=== PATIENT | female | born 1940 | race Caucasian/White ===

== ENCOUNTER 2017-09-27 13:47 | Emergency (ER) | payer MEDICARE, OTHER ==
[~2017-09-27] VITALS: Ht 152.4 cm; Wt 47.0 kg
[~2017-09-27 13:47] MED LIST: ACET650T10 PO; CEPH500C3 PO; CYAN1000P IM; DILA100C PO; GABA300 PO; LASI20TA PO; LORA-392 PO; POTA10CA26 PO; RISP.25 PO; SERT50 PO; SIMV20 PO
--- NOTE | 2017-09-27 15:14 | RADRPT ---
EXAM DATE/TIME: 09/27/2017 15:03 [facility] COMPARISON: No previous studies available for comparison. INDICATIONS : Dizziness, fall. RADIATION DOSE: 47 CTDIvol (mGy) MEDICAL HISTORY : Seizures. SURGICAL HISTORY : None. ENCOUNTER: Initial ACUITY: 2 days PAIN SCALE: 0/10 LOCATION: cranial TECHNIQUE: Multiple contiguous axial images were obtained of the head. Using automated exposure control and adj ustment of the mA and/or kV according to patient size, radiation dose was kept as low as reasonably a chievable to obtain optimal diagnostic quality images. DICOM format image data is available electro nically for review and comparison. FINDINGS: CEREBRUM: The ventricles are normal for age. No evidence of midline shift, mass lesion, hemorrhage or acute in farction. No extra-axial fluid collections are seen. POSTERIOR FOSSA: The cerebellum and brainstem are intact. The 4th ventricle is midline. The cerebellopontine angle i s unremarkable. EXTRACRANIAL: The visualized portion of the orbits is intact. SKULL: The calvaria is intact. No evidence of skull fracture. CONCLUSION: Negative noncontrast CT Dickson Kuhn MD on September 27, 2017 at 15:11 Board Certified Radiologist. This report was verified electronically.
--- NOTE | 2017-09-27 15:28 | RADRPT ---
EXAM DATE/TIME: 09/27/2017 15:03 [facility] COMPARISON: No previous studies available for comparison. INDICATIONS : Fall. RADIATION DOSE: 16.32 CTDIvol (mGy) MEDICAL HISTORY : Seizures. SURGICAL HISTORY : None. ENCOUNTER: Initial ACUITY: 1 day PAIN SCALE: 0/10 LOCATION: Bilateral neck TECHNIQUE: Volumetric scanning of the cervical spine was performed. Multiplanar reconstructions i n the sagittal, coronal and oblique axial planes were performed. Using automated exposure control a nd adjustment of the mA and/or kV according to patient size, radiation dose was kept as low as reason ably achievable to obtain optimal diagnostic quality images. DICOM format image data is available e lectronically for review and comparison. FINDINGS: The sagittal reconstructions demonstrate that the vertebral bodies are intact and there is normal pre vertebral soft tissues. There is a mild grade 1 anterospondylolisthesis of C4 on C5 approximately 5 m m which appears chronic. Degenerative disc changes are present with disc space narrowing and hypertro phic changes. There are degenerative changes involving the atlantoaxial joint with prominent joint ca psule calcification. The dens is intact and there is a normal atlantoaxial relationship. The axial images demonstrate that the vertebral bodies and posterior elements are intact. The soft ti ssues are within normal limits. There is no evidence of acute fracture or malalignment. There is an a bnormal appearance of the proximal esophagus with prominence, para food and air fluid levels noted ju st below the thoracic inlet. CONCLUSION: 1. No acute fracture. 2. Mild grade 1 anterospondylolisthesis of C4 and C5 which appears chronic. 3. Degenerative disc change. 4. Abnormal appearance to the proximal esophagus which may represent a Zenker's diverticulum. This is not an acute abnormality and could be further evaluated with direct imaging and/or outpatient barium swallow.. Board Certified Radiologist. This report was verified electronically.
[2017-09-27 15:59] VITALS: BP 105/52; PULSE 63; RESP 16; TEMP 98.4; O2SAT 95
[2017-09-27 18:00] LABS: AUTOMATED NEUTROPHIL # 1.6 TH/MM3 (1.8-7.7); BASOPHIL % 0.5 % (0.0-2.0); EOSINOPHIL % 0.5 % (0.0-4.0); HEMATOCRIT 39.8 % (35.0-46.0); HEMOGLOBIN 14.1 GM/DL (11.6-15.3); LYMPH % 43.7 % (9.0-44.0); LYMPHOCYTE # 1.5 TH/MM3 (1.0-4.8); MEAN CELL VOLUME 101.1 FL (80.0-100.0); MEAN CORPUSCULAR HEMOGLOBIN 35.8 PG (27.0-34.0); MEAN CORPUSCULAR HGB CONC 35.4 % (32.0-36.0); MEAN PLATELET VOLUME 7.6 FL (7.0-11.0); MONO % 8.6 % (0.0-8.0); MONOCYTE # 0.3 TH/MM3 (0-0.9); NEUT % 46.7 % (16.0-70.0); PLATELET COUNT 131 TH/MM3 (150-450); RED BLOOD COUNT 3.94 MIL/MM3 (4.00-5.30); RED CELL DISTRIBUTION WIDTH 12.7 % (11.6-17.2); WHITE BLOOD COUNT 3.3 TH/MM3 (4.0-11.0)
--- NOTE | 2017-09-27 18:00 | PD ---
HPI Chief Complaint: Fall Time Seen by Provider: 17:58 Travel History International Travel<30 days: No Contact w/Intl Traveler<30days: No PFSH Past Medical History Medical History: Denies Significant Hx Anxiety: Yes Depression: Yes Diminished Hearing: No Seizures: Yes ?: Not Menopausal: Yes Past Surgical History Surgical History: No Previous Surgery Social History Alcohol Use: No Tobacco Use: No Substance Use: No Allergies-Medications (Allergen,Severity, Reaction): Coded Allergies: No Known Allergies (Verified , 01/22/10) Reported Meds & Prescriptions Reported Meds & Active Scripts Active Keflex (Cephalexin Monohydrate) 500 Mg Cap 500 Mg PO QID Reported Ativan (Lorazepam) 0.5 Mg Tab 0.5 Mg PO BIDPRN Zoloft (Sertraline HCl) 50 Mg Tab 75 Mg PO DAILY Tylenol (Acetaminophen) 650 Mg Supp 650 Mg PO HS Zocor (Simvastatin) 20 Mg Tab 20 Mg PO HS Risperdal (Risperidone) 0.25 Mg Tab 0.25 Mg PO BID Micro-K 10 Extencaps (Potassium Chloride) 10 Meq Capcr 10 Meq PO DAILY Dilantin Kapseals (Phenytoin Sodium) 100 Mg Cap 300 Mg PO DAILY Lasix (Furosemide) 20 Mg Tab 20 Mg PO DAILY Neurontin (Gabapentin) 300 Mg Cap 300 Mg PO TID Vitamin B12 (Cyanocobalamin) 1,000 Mcg/Ml Inj 1,000 Mcg IM MONTHLY Data Data Last Documented VS Vital Signs Date Time Temp Pulse Resp B/P (MAP) Pulse Ox O2 Delivery O2 Flow Rate FiO2 09/27/17 18:16 61 18 117/56 (76) 93 Room Air 09/27/17 15:59 98.4 Orders Orders Complete Blood Count With Diff (09/27/17 13:52) Comprehensive Metabolic Panel (09/27/17 13:52) Troponin I (09/27/17 13:52) Electrocardiogram (09/27/17 ) Urinalysis - C+S If Indicated (09/27/17 13:52) Ct Brain W/O Iv Contrast(Rout) (09/27/17 ) Ct Cerv Spine W/O Contrast (09/27/17 ) Labs Laboratory Tests Test 09/27/17 17:44 White Blood Count 3.3 TH/MM3 Red Blood Count 3.94 MIL/MM3 Hemoglobin 14.1 GM/DL Hematocrit 39.8 % Mean Corpuscular Volume 101.1 FL Mean Corpuscular Hemoglobin 35.8 PG Mean Corpuscular Hemoglobin Concent 35.4 % Red Cell Distribution Width 12.7 % Platelet Count 131 TH/MM3 Mean Platelet Volume 7.6 FL Neutrophils (%) (Auto) 46.7 % Lymphocytes (%) (Auto) 43.7 % Monocytes (%) (Auto) 8.6 % Eosinophils (%) (Auto) 0.5 % Basophils (%) (Auto) 0.5 % Neutrophils # (Auto) 1.6 TH/MM3 Lymphocytes # (Auto) 1.5 TH/MM3 Monocytes # (Auto) 0.3 TH/MM3 Eosinophils # (Auto) 0.0 TH/MM3 Basophils # (Auto) 0.0 TH/MM3 CBC Comment DIFF FINAL Differential Comment Blood Urea Nitrogen 7 MG/DL Creatinine 0.65 MG/DL Random Glucose 144 MG/DL Total Protein 7.4 GM/DL Albumin 3.8 GM/DL Calcium Level 8.3 MG/DL Alkaline Phosphatase 117 U/L Aspartate Amino Transf (AST/SGOT) 25 U/L Alanine Aminotransferase (ALT/SGPT) 27 U/L Total Bilirubin 0.3 MG/DL Sodium Level 132 MEQ/L Potassium Level 3.9 MEQ/L Chloride Level 95 MEQ/L Carbon Dioxide Level 29.3 MEQ/L Anion Gap 8 MEQ/L Estimat Glomerular Filtration Rate 88 ML/MIN Troponin I LESS THAN 0.02 NG/ML Linda Hdez MD Sep 27, 2017 18:00
--- NOTE | 2017-09-27 18:07 | PD ---
HPI Chief Complaint: Fall Time Seen by Provider: 17:58 Travel History International Travel<30 days: No Contact w/Intl Traveler<30days: No History of Present Illness HPI 76-year-old female with history of dementia from [facility] presents to emergency department with questionable unwitnessed fall 2 days prior to arrival. Patient was sent for medical clearance. Patient has no complaints of pain or headache at this time. Patient has no known drug allergies. CT scan of the head and neck was ordered by Dr. Hdez. [facility] Past Medical History Medical History: Denies Significant Hx Anxiety: Yes Depression: Yes Diminished Hearing: No Seizures: Yes ?: Not Menopausal: Yes Past Surgical History Surgical History: No Previous Surgery Social History Alcohol Use: No Tobacco Use: No Substance Use: No Allergies-Medications (Allergen,Severity, Reaction): Coded Allergies: No Known Allergies (Verified , 01/22/10) Reported Meds & Prescriptions Reported Meds & Active Scripts Active Keflex (Cephalexin Monohydrate) 500 Mg Cap 500 Mg PO QID Reported Ativan (Lorazepam) 0.5 Mg Tab 0.5 Mg PO BIDPRN Zoloft (Sertraline HCl) 50 Mg Tab 75 Mg PO DAILY Tylenol (Acetaminophen) 650 Mg Supp 650 Mg PO HS Zocor (Simvastatin) 20 Mg Tab 20 Mg PO HS Risperdal (Risperidone) 0.25 Mg Tab 0.25 Mg PO BID Micro-K 10 Extencaps (Potassium Chloride) 10 Meq Capcr 10 Meq PO DAILY Dilantin Kapseals (Phenytoin Sodium) 100 Mg Cap 300 Mg PO DAILY Lasix (Furosemide) 20 Mg Tab 20 Mg PO DAILY Neurontin (Gabapentin) 300 Mg Cap 300 Mg PO TID Vitamin B12 (Cyanocobalamin) 1,000 Mcg/Ml Inj 1,000 Mcg IM MONTHLY Review of Systems ROS Limitations: Poor Historian Except as stated in HPI: all other systems reviewed are Neg General / Constitutional: No: Fever Eyes: No: Visual changes HENT: No: Headaches Cardiovascular: No: Chest Pain or Discomfort Respiratory: No: Shortness of Breath Gastrointestinal: No: Abdominal Pain Genitourinary: No: Dysuria Musculoskeletal: No: Pain Skin: No Rash Neurologic: No: Weakness Psychiatric: No: Depression Endocrine: No: Polydipsia Hematologic/Lymphatic: No: Easy Bruising Physical Exam Narrative GENERAL: Patient appears in no acute distress. She is pleasant. She does not remember why she is here. SKIN: Warm and dry. Normal color. Normal turgor. No signs of trauma. HEAD: Atraumatic. Normocephalic. Nontender with palpation. EYES: Pupils equal and round. No scleral icterus. No injection or drainage. ENT: No nasal bleeding or discharge. Mucous membranes pink and moist. Pharynx is clear. Airway is patent. NECK: Trachea midline. No tenderness with palpation. Range of motion appears supple and nontender. CARDIOVASCULAR: Regular rate and rhythm. RESPIRATORY: No accessory muscle use. Clear to auscultation. Breath sounds equal bilaterally. GASTROINTESTINAL: Abdomen soft, non-tender, nondistended. Hepatic and splenic margins not palpable. MUSCULOSKELETAL: Extremities without clubbing, cyanosis, or edema. No obvious deformities. NEUROLOGICAL: Awake and alert. No obvious cranial nerve deficits. Motor grossly within normal limits. Five out of 5 muscle strength in the arms and legs. Normal speech. PSYCHIATRIC: Appropriate mood and affect; insight and judgment normal. Data Data Last Documented VS Vital Signs Date Time Temp Pulse Resp B/P (MAP) Pulse Ox O2 Delivery O2 Flow Rate FiO2 09/27/17 18:16 61 18 117/56 (76) 93 Room Air 09/27/17 15:59 98.4 Orders Orders Complete Blood Count With Diff (09/27/17 13:52) Comprehensive Metabolic Panel (09/27/17 13:52) Troponin I (09/27/17 13:52) Electrocardiogram (09/27/17 ) Urinalysis - C+S If Indicated (09/27/17 13:52) Ct Brain W/O Iv Contrast(Rout) (09/27/17 ) Ct Cerv Spine W/O Contrast (09/27/17 ) Labs Laboratory Tests Test 09/27/17 17:44 White Blood Count 3.3 TH/MM3 Red Blood Count 3.94 MIL/MM3 Hemoglobin 14.1 GM/DL Hematocrit 39.8 % Mean Corpuscular Volume 101.1 FL Mean Corpuscular Hemoglobin 35.8 PG Mean Corpuscular Hemoglobin Concent 35.4 % Red Cell Distribution Width 12.7 % Platelet Count 131 TH/MM3 Mean Platelet Volume 7.6 FL Neutrophils (%) (Auto) 46.7 % Lymphocytes (%) (Auto) 43.7 % Monocytes (%) (Auto) 8.6 % Eosinophils (%) (Auto) 0.5 % Basophils (%) (Auto) 0.5 % Neutrophils # (Auto) 1.6 TH/MM3 Lymphocytes # (Auto) 1.5 TH/MM3 Monocytes # (Auto) 0.3 TH/MM3 Eosinophils # (Auto) 0.0 TH/MM3 Basophils # (Auto) 0.0 TH/MM3 CBC Comment DIFF FINAL Differential Comment Blood Urea Nitrogen 7 MG/DL Creatinine 0.65 MG/DL Random Glucose 144 MG/DL Total Protein 7.4 GM/DL Albumin 3.8 GM/DL Calcium Level 8.3 MG/DL Alkaline Phosphatase 117 U/L Aspartate Amino Transf (AST/SGOT) 25 U/L Alanine Aminotransferase (ALT/SGPT) 27 U/L Total Bilirubin 0.3 MG/DL Sodium Level 132 MEQ/L Potassium Level 3.9 MEQ/L Chloride Level 95 MEQ/L Carbon Dioxide Level 29.3 MEQ/L Anion Gap 8 MEQ/L Estimat Glomerular Filtration Rate 88 ML/MIN Troponin I LESS THAN 0.02 NG/ML MDM Medical Decision Making Medical Screen Exam Complete: Yes Emergency Medical Condition: Yes Medical Record Reviewed: Yes Differential Diagnosis Dementia. Question unwitnessed fall. Possible intracranial bleed. Narrative Course Patient appears medically stable at time of exam. CT of the head and neck are normal. Labs are also within normal limits. Patient is medically cleared for return to nursing facility. Patient be followed up by her primary care physician. Diagnosis Primary Impression: Encounter for general adult medical examination without abnormal findings Referrals: Primary Care Physician Patient Instructions: Fall Prevention for Older Adults (DC), General Instructions Additional Instructions: Patient appears medically stable at time of exam. CT of the head and neck are normal. Labs are also within normal limits. Patient is medically cleared for return to nursing facility. Patient be followed up by her primary care physician. Med/Other Pt SpecificInfo: No Meds Exist/No RX given Disposition: 03 DISCHARGE TO SNF Condition: Stable Jeff Mcdonnell Sep 27, 2017 18:07
[2017-09-27 18:12] LABS: ALBUMIN 3.8 GM/DL (3.4-5.0); ALT (GPT) 27 U/L (10-53); AST (GOT) 25 U/L (15-37); BICARBONATE 29.3 MEQ/L (21.0-32.0); BLOOD UREA NITROGEN 7 MG/DL (7-18); CALCIUM 8.3 MG/DL (8.5-10.1); CHLORIDE 95 MEQ/L (98-107); CREATININE 0.65 MG/DL (0.50-1.00); GLOMERULAR FILTRATION RATE 88 ML/MIN (>89); GLUCOSE,RANDOM 144 MG/DL (74-106); SODIUM (NA) 132 MEQ/L (136-145)
[2017-09-27 18:16] VITALS: BP 117/56; PULSE 61; RESP 18; O2SAT 93
[2017-09-27 18:16] LABS: ALKALINE PHOSPHATASE 117 U/L (45-117); TOTAL BILIRUBIN ADULT 0.3 MG/DL (0.2-1.0); TOTAL PROTEIN 7.4 GM/DL (6.4-8.2); TROPONIN I LESS THAN 0.02 NG/ML (0.02-0.05)
--- NOTE | 2017-09-27 18:31 | PD ---
Physical Exam Narrative I, Dr. Hdez, have reviewed the advance practice practitioner's documentation and am in agreement, met with the patient face to face, made the diagnosis, and the medical decision making was done by me. *My assessment and Findings: Patient is a 76 year old female who comes in from the OR after a fall. She doesn't remember what happened. Exam shows no acute abnormalities. Data Data Last Documented VS Orders Orders Complete Blood Count With Diff (09/27/17 13:52) Comprehensive Metabolic Panel (09/27/17 13:52) Troponin I (09/27/17 13:52) Electrocardiogram (09/27/17 ) Ct Brain W/O Iv Contrast(Rout) (09/27/17 ) Ct Cerv Spine W/O Contrast (09/27/17 ) Ed Discharge Order (09/27/17 19:17) Labs Laboratory Tests Test 09/27/17 17:44 White Blood Count 3.3 TH/MM3 Red Blood Count 3.94 MIL/MM3 Hemoglobin 14.1 GM/DL Hematocrit 39.8 % Mean Corpuscular Volume 101.1 FL Mean Corpuscular Hemoglobin 35.8 PG Mean Corpuscular Hemoglobin Concent 35.4 % Red Cell Distribution Width 12.7 % Platelet Count 131 TH/MM3 Mean Platelet Volume 7.6 FL Neutrophils (%) (Auto) 46.7 % Lymphocytes (%) (Auto) 43.7 % Monocytes (%) (Auto) 8.6 % Eosinophils (%) (Auto) 0.5 % Basophils (%) (Auto) 0.5 % Neutrophils # (Auto) 1.6 TH/MM3 Lymphocytes # (Auto) 1.5 TH/MM3 Monocytes # (Auto) 0.3 TH/MM3 Eosinophils # (Auto) 0.0 TH/MM3 Basophils # (Auto) 0.0 TH/MM3 CBC Comment DIFF FINAL Differential Comment Blood Urea Nitrogen 7 MG/DL Creatinine 0.65 MG/DL Random Glucose 144 MG/DL Total Protein 7.4 GM/DL Albumin 3.8 GM/DL Calcium Level 8.3 MG/DL Alkaline Phosphatase 117 U/L Aspartate Amino Transf (AST/SGOT) 25 U/L Alanine Aminotransferase (ALT/SGPT) 27 U/L Total Bilirubin 0.3 MG/DL Sodium Level 132 MEQ/L Potassium Level 3.9 MEQ/L Chloride Level 95 MEQ/L Carbon Dioxide Level 29.3 MEQ/L Anion Gap 8 MEQ/L Estimat Glomerular Filtration Rate 88 ML/MIN Troponin I LESS THAN 0.02 NG/ML MDM Supervised Visit with [facility]: Yes Narrative Course CT head and C-spine performed. Last [address] 09/27/17 0000 Signed Impressions: Service Date/Time: Wednesday, September 27, 2017 15:03 - CONCLUSION: Negative noncontrast CT Dickson Kuhn MD Cervical Spine CT 09/27/17 0000 Signed Impressions: Service Date/Time: Wednesday, September 27, 2017 15:03 - CONCLUSION: 1. No acute fracture. 2. Mild grade 1 anterospondylolisthesis of C4 and C5 which appears chronic. 3. Degenerative disc change. 4. Abnormal appearance to the proximal esophagus which may represent a Zenker's diverticulum. This is not an acute abnormality and could be further evaluated with direct imaging and/or outpatient barium swallow.. Board Certified Radiologist. This report was verified electronically. She will discharged back to her NH. Diagnosis Primary Impression: Encounter for general adult medical examination without abnormal findings Referrals: Primary Care Physician Patient Instructions: General Instructions Disposition: 03 DISCHARGE TO SNF Condition: Stable Linda Hdez MD Sep 27, 2017 18:31
[2017-09-27 19:00] VITALS: BP_SYST 110; BP_SYST 124; BP_DIAS 51; BP_DIAS 75; PULSE 60; PULSE 92; RESP 20; O2SAT 94; O2SAT 95
--- NOTE | 2017-09-28 16:24 | EKG ---
Date Performed: 09/27/2017 Time Performed: 18:20:05 PTAGE: 76 years EKG: Sinus rhythm WITH FIRST DEGREE AV BLOCK LOW QRS VOLTAGE IN PRECORDIAL LEADS INFERIOR MYOCARDIAL INFARCTION ABNORM AL ECG Compared to PREVIOUS TRACING , evidence for inferior infarction is now present. PREVIOUS TRACIN09/2005 11.54 DOCTOR: Erick Valerio Interpretating Date/Time 09/28/2017 16:23:15
== END 2017-09-27 22:16 ==
LOC: NEPC 13:47 → NEDAMB 22:16
DX: Z04.3 Encounter for examination and observation following other accident (principal); M50.30 Other cervical disc degeneration, unspecified cervical region; I44.0 Atrioventricular block, first degree; I25.2 Old myocardial infarction; R94.31 Abnormal electrocardiogram [ECG] [EKG]; F03.90 Unspecified dementia, unspecified severity, without behavioral disturbance, psychotic disturbance, mood disturbance, and anxiety; F41.9 Anxiety disorder, unspecified; F32.9 Major depressive disorder, single episode, unspecified; R56.9 Unspecified convulsions
CPT/HCPCS: 70450; 72125; 80053; 84484; 85025; 93005

== ENCOUNTER 2017-09-29 18:30 | Inpatient (IN) | payer MEDICARE, OTHER ==
[~2017-09-29] VITALS: Ht 162.6 cm; Wt 56.4 kg
[2017-09-29 18:47] VITALS: BP 136/61; PULSE 75; RESP 23; TEMP 97.7; O2SAT 95
[2017-09-29 19:23] VITALS: BP 114/56; PULSE 60; RESP 15; O2SAT 95
[2017-09-29] MEDS ORDERED: SODIUM CHLORID 0.9% 500 ML INJ 500 ML IV ONE (19:30)
--- NOTE | 2017-09-29 19:35 | PD ---
HPI Chief Complaint: Medical Clearance Time Seen by Provider: 19:23 Travel History International Travel<30 days: No Contact w/Intl Traveler<30days: No Traveled to known affect area: No History of Present Illness HPI 68-year-old female with a history of seizure disorder presents to the emergency department via [facility] after a fall that occurred at her assisted-living facility today. Patient states that she stood up rather quickly resulting in lightheadedness, falling and hitting her head. Patient denies loss of consciousness, weakness, nausea, vomiting or diarrhea. States her last seizure with many years ago as she takes Dilantin regularly. Patient states she sees a neurologist once a month. Patient has unable to tell me who her neurologist as however. PFSH Past Medical History Anxiety: Yes Depression: Yes High Cholesterol: Yes Dementia: Yes Diminished Hearing: No Seizures: Yes Tetanus Vaccination: Unknown Menopausal: Yes Past Surgical History Surgical History: Unable to Obtain Social History Alcohol Use: No Tobacco Use: No Substance Use: No Allergies-Medications (Allergen,Severity, Reaction): Coded Allergies: No Known Allergies (Verified Allergy, Unknown, 09/29/17) Reported Meds & Prescriptions Reported Meds & Active Scripts Active Keflex (Cephalexin Monohydrate) 500 Mg Cap 500 Mg PO QID Reported B-12 Tr (Cyanocobalamin) 1,000 Mcg Tab 1,000 Mcg PO DAILY Travatan Z Opth Drops (Travoprost) 0.004 % Soln 1 Drop RIGHT EYE HS [place] 24 HR (Desvenlafaxine Succinate) 50 Mg Tab 50 Mg PO DAILY Potassium Chloride ER (Potassium Chloride) 10 Meq Tab 10 Meq PO DAILY Namzaric (Memantine-Donepezil) 28-10 Mg Cap 1 Cap PO HS Allergy Relief (Fexofenadine HCl) 60 Mg Tablet DAILY Milk of Magnesia Liq (Magnesium Hydroxide) 400 Mg/5 Ml Susp 30 Ml PO DAILY PRN Klonopin (Clonazepam) 0.5 Mg Tab 0.5 Mg PO TID Guaifenesin Liq (Guaifenesin) 100 mg/5 ML Soln 100 Mg PO Q4H PRN Gabapentin 300 Mg Cap 300 Mg PO TID Furosemide 40 Mg Tab 40 Mg PO DAILY Fleet Enema Extra (Sod Phos,M-B/Na Phos,Di-Ba) 19 Gram-7 Gram/197 Ml Enema 1 RECTAL DAILY Dilantin-125 Liq (Phenytoin) 125 Mg/5 Ml Susp 250 Mg PO DAILY Depakote DR (Divalproex Sodium) 125 Mg Tabdr 125 Mg PO BID Biscolax Supp (Bisacodyl) 10 Mg Supp 10 Mg RECTAL DAILY PRN Atorvastatin (Atorvastatin Calcium) 10 Mg Tab 10 Mg PO HS Aspirin EC (Aspirin) 81 Mg Tabdr 81 Mg PO DAILY Aripiprazole 30 Mg Tab 30 Mg PO DAILY Acetaminophen 325 Mg Capsule 650 PO Q4HR Ativan (Lorazepam) 0.5 Mg Tab 0.5 Mg PO BIDPRN Zoloft (Sertraline HCl) 50 Mg Tab 75 Mg PO DAILY Acetaminophen Er (Acetaminophen) 650 Mg Supp 650 Mg PO HS Zocor (Simvastatin) 20 Mg Tab 20 Mg PO HS Risperdal (Risperidone) 0.25 Mg Tab 0.25 Mg PO BID Micro-K 10 Extencaps (Potassium Chloride) 10 Meq Capcr 10 Meq PO DAILY Dilantin Kapseals (Phenytoin Sodium) 100 Mg Cap 300 Mg PO DAILY Lasix (Furosemide) 20 Mg Tab 20 Mg PO DAILY Neurontin (Gabapentin) 300 Mg Cap 300 Mg PO TID Vitamin B12 (Cyanocobalamin) 1,000 Mcg/Ml Inj 1,000 Mcg IM MONTHLY Review of Systems Except as stated in HPI: all other systems reviewed are Neg Physical Exam Narrative GENERAL: Well-developed well-nourished in no apparent distress SKIN: Focused skin assessment warm/dry. Left forehead light abrasion without hematoma HEAD: Normocephalic. EYES: Pupils equal and round. No scleral icterus. No injection or drainage. EOMI ENT: No nasal bleeding or discharge. Mucous membranes pink and moist. NECK: Supple, nontender. No meningeal signs. Trachea midline. No JVD or lymphadenopathy. CARDIOVASCULAR: Regular rate and rhythm. No murmur appreciated. RESPIRATORY: No accessory muscle use. Clear to auscultation. Breath sounds equal bilaterally. GASTROINTESTINAL: Abdomen soft, non-tender, nondistended. Hepatic and splenic margins not palpable. MUSCULOSKELETAL: No obvious deformities. No clubbing. No cyanosis. No edema. BACK: No CVA tenderness. No rash. No point tenderness on palpation of the spine. NEUROLOGICAL: Awake and alert. No obvious cranial nerve deficits. Motor grossly within normal limits. Normal speech. PSYCHIATRIC: Appropriate mood and affect; insight and judgment normal. Data Data Last Documented VS Vital Signs Date Time Temp Pulse Resp B/P (MAP) Pulse Ox O2 Delivery O2 Flow Rate FiO2 09/29/17 21:33 71 16 114/56 (75) 09/29/17 19:23 95 Room Air 09/29/17 18:[address] Brain W/O Iv Contrast(Rout) (09/29/17 ) Ct Cerv Spine W/O Contrast (09/29/17 ) Ct Facial Bones W/O Iv Cont (09/29/17 ) Sodium Chlorid 0.9% 500 Ml Inj (Ns 500 M (09/29/17 19:30) Phenytoin (Dilantin) (09/29/17 19:30) Complete Blood Count With Diff (09/29/17 19:30) Comprehensive Metabolic Panel (09/29/17 19:30) Magnesium (Mg) (09/29/17 19:30) Orthostatic Vital Signs (09/29/17 19:30) Electrocardiogram (09/29/17 ) Hip, Uni(Ap&Lat) W Ap Pelvis (09/29/17 ) Admit Order (Ed Use Only) (09/29/17 22:54) Place In Observation (09/29/17 ) Vital Signs (Adult) Q4H (09/29/17 22:54) Neuro Checks Q4H (09/29/17 22:54) Activity Oob With Assistance (09/29/17 22:54) Cafeteria Operator / Telemetry .CONTINUOUS (09/29/17 22:54) Diet Heart Healthy (09/30/17 Breakfast) Sodium Chloride 0.9% Flush (Ns Flush) (09/29/17 23:00) Sodium Chloride 0.9% Flush (Ns Flush) (09/30/17 09:00) Comprehensive Metabolic Panel (09/30/17 06:00) Complete Blood Count With Diff (09/30/17 06:00) Pt Request For Service (09/29/17 22:54) Case Management Consult (09/29/17 22:54) Naloxone Inj (Narcan Inj) (09/29/17 23:00) Labs Laboratory Tests Test 09/29/17 19:50 White Blood Count 3.7 TH/MM3 Red Blood Count 3.95 MIL/MM3 Hemoglobin 13.9 GM/DL Hematocrit 39.8 % Mean Corpuscular Volume 100.9 FL Mean Corpuscular Hemoglobin 35.3 PG Mean Corpuscular Hemoglobin Concent 35.0 % Red Cell Distribution Width 12.9 % Platelet Count 132 TH/MM3 Mean Platelet Volume 7.9 FL Neutrophils (%) (Auto) 29.6 % Lymphocytes (%) (Auto) 53.3 % Monocytes (%) (Auto) 13.5 % Eosinophils (%) (Auto) 3.0 % Basophils (%) (Auto) 0.6 % Neutrophils # (Auto) 1.1 TH/MM3 Lymphocytes # (Auto) 2.0 TH/MM3 Monocytes # (Auto) 0.5 TH/MM3 Eosinophils # (Auto) 0.1 TH/MM3 Basophils # (Auto) 0.0 TH/MM3 CBC Comment DIFF FINAL Differential Comment Blood Urea Nitrogen 4 MG/DL Creatinine 0.55 MG/DL Random Glucose 122 MG/DL Total Protein 7.1 GM/DL Albumin 3.7 GM/DL Calcium Level 8.5 MG/DL Magnesium Level 2.1 MG/DL Alkaline Phosphatase 111 U/L Aspartate Amino Transf (AST/SGOT) 26 U/L Alanine Aminotransferase (ALT/SGPT) 26 U/L Total Bilirubin 0.3 MG/DL Sodium Level 132 MEQ/L Potassium Level 4.0 MEQ/L Chloride Level 95 MEQ/L Carbon Dioxide Level 30.3 MEQ/L Anion Gap 7 MEQ/L Estimat Glomerular Filtration Rate 107 ML/MIN Phenytoin (Dilantin) Level 35.6 MCG/ML MDM Medical Decision Making Medical Screen Exam Complete: Yes Emergency Medical Condition: Yes Differential Diagnosis Head contusion, syncope, vasovagal, orthostatic hypotension, dehydration Narrative Course 68-year-old female with a history of seizure disorder presents to the emergency department via [facility] after a fall that occurred at her assisted-living facility today. Patient states that she stood up rather quickly resulting in lightheadedness, falling and hitting her head. Patient also hit her right hip on the floor resulting in pain. Patient denies numbness or tingling. Denies lower extremity weakness. Denies loss of bowel or bladder function. Patient denies loss of consciousness, weakness, nausea, vomiting or diarrhea. States her last seizure with many years ago as she takes Dilantin regularly. Patient states she sees a neurologist once a month. Patient has unable to tell me who her neurologist however. Says her 'memory is bad' because of the amount of seizure she has had in her life. Vital signs stable. Last Impressions Maxillofacial CT 09/29/17 0000 Signed Impressions: Service Date/Time: Friday, September 29, 2017 20:06 - CONCLUSION: No acute disease. Jose David Crews Jr., MD Hip and Pelvis X-Ray 09/29/17 0000 Signed Impressions: Service Date/Time: Friday, September 29, 2017 20:00 - CONCLUSION: No acute disease. Jose David Crews Jr., MD Head CT 09/29/17 0000 Signed Impressions: Service Date/Time: Friday, September 29, 2017 20:06 - CONCLUSION: Normal examination. Jose David Crews Jr., MD Cervical Spine CT 09/29/17 0000 Signed Impressions: Service Date/Time: Friday, September 29, 2017 20:06 - CONCLUSION: 1. No acute abnormality. 2. Multilevel degenerative changes. 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 Jose David Crews Jr., MD Laboratory Tests Test 09/29/17 19:50 White Blood Count 3.7 TH/MM3 Red Blood Count 3.95 MIL/MM3 Hemoglobin 13.9 GM/DL Hematocrit 39.8 % Mean Corpuscular Volume 100.9 FL Mean Corpuscular Hemoglobin 35.3 PG Mean Corpuscular Hemoglobin Concent 35.0 % Red Cell Distribution Width 12.9 % Platelet Count 132 TH/MM3 Mean Platelet Volume 7.9 FL Neutrophils (%) (Auto) 29.6 % Lymphocytes (%) (Auto) 53.3 % Monocytes (%) (Auto) 13.5 % Eosinophils (%) (Auto) 3.0 % Basophils (%) (Auto) 0.6 % Neutrophils # (Auto) 1.1 TH/MM3 Lymphocytes # (Auto) 2.0 TH/MM3 Monocytes # (Auto) 0.5 TH/MM3 Eosinophils # (Auto) 0.1 TH/MM3 Basophils # (Auto) 0.0 TH/MM3 CBC Comment DIFF FINAL Differential Comment Blood Urea Nitrogen 4 MG/DL Creatinine 0.55 MG/DL Random Glucose 122 MG/DL Total Protein 7.1 GM/DL Albumin 3.7 GM/DL Calcium Level 8.5 MG/DL Magnesium Level 2.1 MG/DL Alkaline Phosphatase 111 U/L Aspartate Amino Transf (AST/SGOT) 26 U/L Alanine Aminotransferase (ALT/SGPT) 26 U/L Total Bilirubin 0.3 MG/DL Sodium Level 132 MEQ/L Potassium Level 4.0 MEQ/L Chloride Level 95 MEQ/L Carbon Dioxide Level 30.3 MEQ/L Anion Gap 7 MEQ/L Estimat Glomerular Filtration Rate 107 ML/MIN Phenytoin (Dilantin) Level 35.6 MCG/ML CBC stable. Electrolytes stable. Reviewed previous notes from last admission. She had multiple episodes of falls several days ago. She was evaluated here in the ED and allowed to return home with close follow up. Phenytoin level elevated at 35.6. I am concerned about phenytoin-induced ataxia. To evaluate for her status, I moved the patient to the bedside commode. She was unsuccessful at performing this move without significant assistance. Patient states that she has normally able to ambulate in around her facility without assistance. Because patient's elevated phenytoin and ataxia, will admit for observation as this may be a side effect of her medication. Thank you Dr. Navarro for taking this patient. Diagnosis Primary Impression: Weakness Additional Impressions: Ataxia Elevated phenytoin level Admitting Information Admitting Physician Requests: Observation Condition: Stable Samara Puckett Sep 29, 2017 19:35
[2017-09-29 19:51] VITALS: BP 116/55; RESP 19
--- NOTE | 2017-09-29 20:13 | RADRPT ---
EXAM DATE/TIME: 09/29/2017 20:00 [facility] COMPARISON: No previous studies available for comparison. INDICATIONS : Right hip pain after fall. MEDICAL HISTORY : Seizures. SURGICAL HISTORY : None. ENCOUNTER: Initial ACUITY: 1 day PAIN SCORE: 4/10 LOCATION: Right hip. FINDINGS: Examination of the right hip was performed with AP Pelvis. The primary and secondary trabecular sussy erendira of the femoral neck is intact. The hip joint is of normal width without significant sclerosis or bony hypertrophy. The acetabulum is grossly intact. CONCLUSION: No acute disease. Jose David Crews Jr., MD on September 29, 2017 at 20:10 Board Certified Radiologist. This report was verified electronically.
--- NOTE | 2017-09-29 20:20 | RADRPT ---
EXAM DATE/TIME: 09/29/2017 20:06 [facility] COMPARISON: CT BRAIN W/O CONTRAST, September 27, 2017, 15:03. INDICATIONS : Trauma, fall. Bruising to forehead. RADIATION DOSE: 33.33 CTDIvol (mGy) MEDICAL HISTORY : Dementia. Seizures. SURGICAL HISTORY : None. ENCOUNTER: Initial ACUITY: 1 day PAIN SCALE: 2/10 LOCATION: cranial TECHNIQUE: Multiple contiguous axial images were obtained of the head. Using automated exposure control and adj ustment of the mA and/or kV according to patient size, radiation dose was kept as low as reasonably a chievable to obtain optimal diagnostic quality images. DICOM format image data is available electro nically for review and comparison. FINDINGS: CEREBRUM: The ventricles are normal for age. No evidence of midline shift, mass lesion, hemorrhage or acute in farction. No extra-axial fluid collections are seen. POSTERIOR FOSSA: The cerebellum and brainstem are intact. The 4th ventricle is midline. The cerebellopontine angle i s unremarkable. EXTRACRANIAL: The visualized portion of the orbits is intact. SKULL: The calvaria is intact. No evidence of skull fracture. CONCLUSION: Normal examination. Jose David Crews Jr., MD on September 29, 2017 at 20:16 Board Certified Radiologist. This report was verified electronically.
--- NOTE | 2017-09-29 20:24 | RADRPT ---
EXAM DATE/TIME: 09/29/2017 20:06 [facility] COMPARISON: CT CERVICAL SPINE W/O CONTRAST, September 27, 2017, 15:03. INDICATIONS : Trauma, fall. RADIATION DOSE: 20.34 CTDIvol (mGy) MEDICAL HISTORY : Dementia. Seizures. SURGICAL HISTORY : None. ENCOUNTER: Initial ACUITY: 1 day PAIN SCALE: 0/10 LOCATION: neck TECHNIQUE: Volumetric scanning of the cervical spine was performed. Multiplanar reconstructions in the sagittal, coronal and oblique axial planes were performed. Using automated exposure control and adjustment o f the mA and/or kV according to patient size, radiation dose was kept as low as reasonably achievable to obtain optimal diagnostic quality images. DICOM format image data is available electronically f or review and comparison. FINDINGS: VERTEBRAE: Normal vertebral body height. ALIGNMENT: There is a grade 1 anterolisthesis of C4 on C5. This is unchanged. 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 This is unchanged. C2-C3: The bony spinal canal is normal in size. No evidence of disc bulge or herniation. The neural forami na are bilaterally patent. C3-C4: There is suspected partial fusion of C3-C4. Central canal and neural foramina are patent. C4-C5: There is a grade 1 anterolisthesis. Central canal is patent. Bony uncovertebral hypertrophy generates mild bilateral neural foraminal narrowing. C5-C6: There is considerable disc space narrowing with a broad-based disc osteophyte complex. Mild narrowing the lateral recesses bilaterally but more pronounced on the right. Central canal remains patent. Bon y uncovertebral hypertrophy contributes to significant right neural foraminal narrowing and mild left neural foraminal narrowing. C6-C7: Disc space narrowing without significant bulge or protrusion. Central canal and lateral recess are pa tent. Neural foramina are patent. C7-T1: The bony spinal canal is normal in size. No evidence of disc bulge or herniation. The neural forami na are bilaterally patent. CONCLUSION: 1. No acute abnormality. 2. Multilevel degenerative changes. 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 Jose David Crews Jr., MD on September 29, 2017 at 20:18 Board Certified Radiologist. This report was verified electronically.
[2017-09-29 20:36] LABS: AUTOMATED NEUTROPHIL # 1.1 TH/MM3 (1.8-7.7); BASOPHIL % 0.6 % (0.0-2.0); EOSINOPHIL # 0.1 TH/MM3 (0-0.4); HEMATOCRIT 39.8 % (35.0-46.0); HEMOGLOBIN 13.9 GM/DL (11.6-15.3); LYMPH % 53.3 % (9.0-44.0); MEAN CELL VOLUME 100.9 FL (80.0-100.0); MEAN CORPUSCULAR HEMOGLOBIN 35.3 PG (27.0-34.0); MEAN PLATELET VOLUME 7.9 FL (7.0-11.0); MONO % 13.5 % (0.0-8.0); MONOCYTE # 0.5 TH/MM3 (0-0.9); NEUT % 29.6 % (16.0-70.0); PLATELET COUNT 132 TH/MM3 (150-450); RED BLOOD COUNT 3.95 MIL/MM3 (4.00-5.30); RED CELL DISTRIBUTION WIDTH 12.9 % (11.6-17.2); WHITE BLOOD COUNT 3.7 TH/MM3 (4.0-11.0)
--- NOTE | 2017-09-29 20:40 | RADRPT ---
EXAM DATE/TIME: 09/29/2017 20:06 [facility] COMPARISON: No previous studies available for comparison. INDICATIONS : Trauma, fall. RADIATION DOSE: 56.35 CTDIvol (mGy) MEDICAL HISTORY : Dementia. Seizures. SURGICAL HISTORY : None. ENCOUNTER: Initial ACUITY: 1 day PAIN SCORE: 0/10 LOCATION: facial TECHNIQUE: Volumetric scanning of the facial bones was performed. Using automated exposure control and adjustme nt of the mA and/or kV according to patient size, radiation dose was kept as low as reasonably achiev able to obtain optimal diagnostic quality images. DICOM format image data is available electronicall y for review and comparison. FINDINGS: ORBITS: The orbital and infraorbital osseous structures are intact. The retroconal structures have a normal configuration. No radiopaque foreign bodies are seen. NASAL BONE: The nasal bone and maxillary spine are intact ZYGOMATIC ARCHES: Symmetric without evidence of fracture. SINUSES: The maxillary, ethmoid and frontal sinuses are intact. No air-fluid levels seen. NASAL CAVITY: The nasal septum is intact and midline. The lacrimal ducts are intact. SOFT TISSUES: No radiopaque foreign bodies seen. No soft-tissue swelling is seen. INTRACRANIAL: No intracranial air seen. CRIBIFORM PLATE: Grossly intact. CONCLUSION: No acute disease. Jose David Crews Jr., MD on September 29, 2017 at 20:35 Board Certified Radiologist. This report was verified electronically.
[2017-09-29 20:59] LABS: ALBUMIN 3.7 GM/DL (3.4-5.0); AST (GOT) 26 U/L (15-37); BICARBONATE 30.3 MEQ/L (21.0-32.0); BLOOD UREA NITROGEN 4 MG/DL (7-18); CALCIUM 8.5 MG/DL (8.5-10.1); CHLORIDE 95 MEQ/L (98-107); CREATININE 0.55 MG/DL (0.50-1.00); GLOMERULAR FILTRATION RATE 107 ML/MIN (>89); GLUCOSE,RANDOM 122 MG/DL (74-106); MAGNESIUM 2.1 MG/DL (1.5-2.5); SODIUM (NA) 132 MEQ/L (136-145)
[2017-09-29 21:03] LABS: ALKALINE PHOSPHATASE 111 U/L (45-117); ALT (GPT) 26 U/L (10-53); TOTAL BILIRUBIN ADULT 0.3 MG/DL (0.2-1.0); TOTAL PROTEIN 7.1 GM/DL (6.4-8.2)
[2017-09-29 21:32] VITALS: BP 108/54; RESP 19
[2017-09-29 21:33] VITALS: BP 114/56; RESP 16
[2017-09-29 21:59] LABS: PHENYTOIN (DILANTIN) 35.6 MCG/ML (10.0-20.0)
[2017-09-29] MEDS ORDERED: [UNRECOGNIZED DRUG - CODE] RECTAL (22:23)
[2017-09-29] MEDS ORDERED: FEXO60TA36 (22:23)
[2017-09-29] MEDS ORDERED: ATOR10TA15 PO (22:23)
[2017-09-29] MEDS ORDERED: FURO40TA PO (22:23)
[2017-09-29] MEDS ORDERED: GABA300C5 PO (22:23)
[2017-09-29] MEDS ORDERED: MEMA1CAP2 PO (22:23)
[2017-09-29] MEDS ORDERED: BISC10SU RECTAL (22:23)
[2017-09-29] MEDS ORDERED: GUAI100S7 PO (22:23)
[2017-09-29] MEDS ORDERED: POTA10TA2 PO (22:23)
[2017-09-29] MEDS ORDERED: DEPA125T PO (22:23)
[2017-09-29] MEDS ORDERED: CLON.5 PO (22:23)
[2017-09-29] MEDS ORDERED: ARIP1TAB15 PO (22:23)
[2017-09-29] MEDS ORDERED: DILA125S PO (22:23)
[2017-09-29] MEDS ORDERED: CYAN100042 PO (22:23)
[2017-09-29] MEDS ORDERED: MILKSUS PO (22:23)
[2017-09-29] MEDS ORDERED: TRAV0.00 RIGHT EYE (22:23)
[2017-09-29] MEDS ORDERED: ASPI81TA23 PO (22:23)
[2017-09-29] MEDS ORDERED: DESV5TAB PO (22:23)
[2017-09-29] MEDS ORDERED: ACET325C PO (22:23)
[2017-09-29] MEDS ORDERED: NALOXONE HCL 0.4 MG/ML AMP IV PUSH PRN (23:00)
[2017-09-29] MEDS ORDERED: SODIUM CHLORIDE 0.9% FLUSH 10 ML FLUSH IV FLUSH PRN (23:00)
[2017-09-30] VITALS (8 sets, daily range): BP systolic 106–124; BP diastolic 54–60; PULSE 63–81; RESP 16–19; TEMP 97.5–98.4; O2SAT 93–96
--- NOTE | 2017-09-30 03:55 | HHI.HP ---
[facility] Service [facility] Primary Care Physician Dutch Ritchie M.D. Admission Diagnosis Phenytoin toxicity, ataxia Diagnoses: Travel History International Travel<30 Days: No Contact w/Intl Traveler <30 Da: No Traveled to Known Affected Are: No History of Present Illness History from patient, ER communication, and review of medical records. Patient is an elderly lady who is limited historian. She Stating that she has short-term memory loss and cannot remember anything because of dementia. For most of the review of systems, she answered no and only for dizziness, she states she may have had that. She then also stated that she may have had double vision. Per ER triage notes, patient has worsening dementia, worsening gait and continues to fall at the skilled nursing. She was here at the emergency room on Thursday as well with a fall and complaining of back pain then. She is again sent to the hospital because of frequent falls. On further workup, patient was found to have Dilantin level of 35. Patient does report of history of seizures for which she is taking Dilantin. On review of medical records from skilled nursing, patient was on different doses of Dilantin. Review of Systems ROS Limitations: Poor Historian, Other (poor historian, baseline dementia. The patient doesn't remember most of her symptoms.) Past Family Social History Past Medical History Per skilled nursing notes: seizure prior hx of etoh abuse anxiety depression neuropathy glaucoma dementia hyperlipidemia Past Surgical History Unknown Reported Medications Patient's medications list from skilled nursing reviewed Allergies: Coded Allergies: No Known Allergies (Verified Allergy, Unknown, 09/29/17) Family History father- ND Social History denies smoking/ etoh abuse/ drug abuse Physical Exam Vital Signs Vital Signs Date Time Temp Pulse Resp B/P (MAP) Pulse Ox O2 Delivery O2 Flow Rate FiO2 09/30/17 01:00 63 19 110/56 (74) 95 Room Air 09/30/17 00:13 66 16 117/55 (75) 96 Room Air 09/29/17 21:33 71 16 114/56 (75) 09/29/17 21:32 68 19 108/54 (72) 09/29/17 19:51 66 19 116/55 (75) 09/29/17 19:23 60 15 114/56 (75) 95 Room Air 09/29/17 18:47 97.7 75 23 136/61 (86) 95 Room Air Physical Exam GENERAL: This is a well-nourished, well-developed patient, in no apparent distress. SKIN: No rashes, ecchymoses or lesions. Cool and dry. HEAD: Atraumatic. Normocephalic. No temporal or scalp tenderness. EYES: No scleral icterus. No injection or drainage. ENT: Nose without bleeding, purulent drainage or septal hematoma. Airway patent. NECK: Trachea midline. No JVD or lymphadenopathy. Supple, nontender, no meningeal signs. CARDIOVASCULAR: Regular rate and rhythm without murmurs, gallops, or rubs. RESPIRATORY: Clear to auscultation. Breath sounds equal bilaterally. No wheezes , rales, or rhonchi. GASTROINTESTINAL: Abdomen soft, non-tender, nondistended. No guarding. MUSCULOSKELETAL: Extremities without clubbing, cyanosis, or edema.No calf tenderness NEUROLOGICAL: Awake and alert.Motor and sensory grossly within normal limits. Normal speech. Laboratory Laboratory Tests Test 09/29/17 19:50 White Blood Count 3.7 Red Blood Count 3.95 Hemoglobin 13.9 Hematocrit 39.8 Mean Corpuscular Volume 100.9 Mean Corpuscular Hemoglobin 35.3 Mean Corpuscular Hemoglobin Concent 35.0 Red Cell Distribution Width 12.9 Platelet Count 132 Mean Platelet Volume 7.9 Neutrophils (%) (Auto) 29.6 Lymphocytes (%) (Auto) 53.3 Monocytes (%) (Auto) 13.5 Eosinophils (%) (Auto) 3.0 Basophils (%) (Auto) 0.6 Neutrophils # (Auto) 1.1 Lymphocytes # (Auto) 2.0 Monocytes # (Auto) 0.5 Eosinophils # (Auto) 0.1 Basophils # (Auto) 0.0 CBC Comment DIFF FINAL Differential Comment Blood Urea Nitrogen 4 Creatinine 0.55 Random Glucose 122 Total Protein 7.1 Albumin 3.7 Calcium Level 8.5 Magnesium Level 2.1 Alkaline Phosphatase 111 Aspartate Amino Transf (AST/SGOT) 26 Alanine Aminotransferase (ALT/SGPT) 26 Total Bilirubin 0.3 Sodium Level 132 Potassium Level 4.0 Chloride Level 95 Carbon Dioxide Level 30.3 Anion Gap 7 Estimat Glomerular Filtration Rate 107 Phenytoin (Dilantin) Level 35.6 Result Diagram: 09/29/17 1950 09/29/17 1950 Imaging Last [address] 09/29/17 0000 Signed Impressions: Service Date/Time: Friday, September 29, 2017 20:06 - CONCLUSION: No acute disease. Jose David Crews Jr., MD Hip and Pelvis X-Ray 09/29/17 0000 Signed Impressions: Service Date/Time: Friday, September 29, 2017 20:00 - CONCLUSION: No acute disease. Jose David Crews Jr., MD Head CT 09/29/17 0000 Signed Impressions: Service Date/Time: Friday, September 29, 2017 20:06 - CONCLUSION: Normal examination. Jose David Crews Jr., MD Cervical Spine CT 09/29/17 0000 Signed Impressions: Service Date/Time: Friday, September 29, 2017 20:06 - CONCLUSION: 1. No acute abnormality. 2. Multilevel degenerative changes. 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 Jose David Crews Jr., MD Caproberto VTE Risk Assessment Caprini VTE Risk Assessment: Mod/High Risk (score >= 2) Caprini Risk Assessment Model Point Value = 1 Point Value = 2 Point Value = 3 Point Value = 5 Age 41-60 Minor surgery BMI > 25 kg/m2 Swollen legs Varicose veins or History of unexplained or recurrent spontaneous Oral contraceptives or hormone replacement Sepsis (< 1 month) Serious lung disease, including pneumonia (< 1 month) Abnormal pulmonary function Acute myocardial infarction Congestive heart failure (< 1 month) History of inflammatory bowel disease Medical patient at bed rest Age 61-74 Arthroscopic surgery Major open surgery (> 45 min) Laparoscopic surgery (> 45 min) Malignancy Confined to bed (> 72 hours) Immobilizing plaster cast Central venous access Age >= 75 History of VTE Family history of VTE Factor V Leiden Prothrombin [id number] Lupus anticoagulant Anticardiolipin antibodies Elevated serum homocysteine Heparin-induced thrombocytopenia Other congenital or acquired thrombophilia Stroke (< 1 month) Elective arthroplasty Hip, pelvis, or leg fracture Acute spinal cord injury (< 1 month) Prophylaxis Regimen Total Risk Factor Score Risk Level Prophylaxis Regimen 0-1 Low Early ambulation 2 Moderate Order ONE of the following: *Sequential Compression Device (SCD) *Heparin 5000 units SQ BID 3-4 Higher Order ONE of the following medications: *Heparin 5000 units SQ TID *Enoxaparin/Lovenox 40 mg SQ daily (WT < 150 kg, CrCl > 30 mL/min) *Enoxaparin/Lovenox 30 mg SQ daily (WT < 150 kg, CrCl > 10-29 mL/min) *Enoxaparin/Lovenox 30 mg SQ BID (WT < 150 kg, CrCl > 30 mL/min) AND/OR *Sequential Compression Device (SCD) 5 or more Highest Order ONE of the following medications: *Heparin 5000 units SQ TID (Preferred with Epidurals) *Enoxaparin/Lovenox 40 mg SQ daily (WT < 150 kg, CrCl > 30 mL/min) *Enoxaparin/Lovenox 30 mg SQ daily (WT < 150 kg, CrCl > 10-29 mL/min) *Enoxaparin/Lovenox 30 mg SQ BID (WT < 150 kg, CrCl > 30 mL/min) AND *Sequential Compression Device (SCD) Assessment and Plan Assessment and Plan Impression: Symptomatic Dilantin toxicity. With gait instability, frequent falls. chronic mild symptomatic toxicity with neurologic symptoms. However at this point, patient is unsafe to be discharged back to the nursing facility since she had frequent falls over the past 2-3 days and nursing facility would like patient to be in a monitored setting.. Macrocytosis. Likely secondary to Dilantin use, prior history of alcohol abuse. Possible B-12 deficiency as well since patient is on B-12 supplements at the skilled nursing Comorbid conditions Per skilled nursing notes: seizure prior hx of etoh abuse anxiety depression neuropathy glaucoma dementia hyperlipidemia Plan: Fall precautions. IV hydration. We'll follow Dilantin level. Hold Dilantin. Monitor in telemetry. EKG personally reviewed. No evidence of bradycardia arrhythmias. QTC 428. Resume rest of her home meds. DVT prophylaxis with Lovenox Discussed Condition With Patient, ER PA, nursing staff Hope Navarro MD Sep 30, 2017 03:55
[2017-09-30] MEDS ORDERED: DILA125S PO ×2 (06:43)
[2017-09-30 06:47] LABS: AUTOMATED NEUTROPHIL # 2.3 TH/MM3 (1.8-7.7); BASOPHIL % 0.4 % (0.0-2.0); EOSINOPHIL # 0.1 TH/MM3 (0-0.4); EOSINOPHIL % 2.4 % (0.0-4.0); HEMOGLOBIN 14.1 GM/DL (11.6-15.3); LYMPH % 38.7 % (9.0-44.0); MEAN CELL VOLUME 102.2 FL (80.0-100.0); MEAN CORPUSCULAR HEMOGLOBIN 35.9 PG (27.0-34.0); MEAN CORPUSCULAR HGB CONC 35.2 % (32.0-36.0); MEAN PLATELET VOLUME 7.6 FL (7.0-11.0); MONOCYTE # 0.7 TH/MM3 (0-0.9); NEUT % 45.5 % (16.0-70.0); PLATELET COUNT 134 TH/MM3 (150-450); RED BLOOD COUNT 3.91 MIL/MM3 (4.00-5.30); RED CELL DISTRIBUTION WIDTH 13.1 % (11.6-17.2); WHITE BLOOD COUNT 5.1 TH/MM3 (4.0-11.0)
[2017-09-30 06:58] LABS: ALBUMIN 3.6 GM/DL (3.4-5.0); AST (GOT) 28 U/L (15-37); BICARBONATE 26.5 MEQ/L (21.0-32.0); BLOOD UREA NITROGEN 3 MG/DL (7-18); CALCIUM 8.4 MG/DL (8.5-10.1); CHLORIDE 102 MEQ/L (98-107); GLOMERULAR FILTRATION RATE 119 ML/MIN (>89); GLUCOSE,RANDOM 109 MG/DL (74-106); SODIUM (NA) 137 MEQ/L (136-145)
[2017-09-30 06:59] LABS: ALT (GPT) 27 U/L (10-53)
[2017-09-30 07:01] LABS: ALKALINE PHOSPHATASE 113 U/L (45-117); TOTAL BILIRUBIN ADULT 0.3 MG/DL (0.2-1.0)
[2017-09-30 07:12] LABS: PHENYTOIN (DILANTIN) 36.5 MCG/ML (10.0-20.0)
[2017-09-30] MEDS: SODIUM CHLORIDE 0.9% FLUSH 10 ML FLUSH IV FLUSH SCH ×2 (09:00→22:13)
[2017-09-30] MEDS ORDERED: BISACODYL 10 MG SUPP RECTAL PRN (09:15)
--- NOTE | 2017-09-30 09:48 | EKG ---
Date Performed: 09/29/2017 Time Performed: 19:42:22 PTAGE: 76 years EKG: Sinus rhythm LOW QRS VOLTAGE IN PRECORDIAL LEADS INFERIOR MYOCARDIAL INFARCTION ABNORMAL ECG PREVIOUS TRACING : 09/27/2017 18.20 DOCTOR: Tom Salas Interpretating Date/Time 09/30/2017 09:47:21
[2017-09-30] MEDS ORDERED: WALKER WHEELS/F1 MIS (11:18)
--- NOTE | 2017-09-30 11:39 | HHI.PR ---
Subjective Remarks Follow up on patient with syncope. Patient seen and examined. Patient states she has no recollection of the events leading up to her fall. She is unsure if she hit her head. She has a history of seizure disorder but does not know the neurologist that she follows up with. She takes Dilantin for her seizures. She denies any change in any of her medications. Presently, she has no acute medical complaints. She denies any headaches, vision changes, number/tingling, palpitations, weakness, chest pain or shortness of breath. She denies any nausea, vomiting or abdominal pain. Patient reports that she ambulates unassisted very well at home. Objective Vitals Vital Signs Date Time Temp Pulse Resp B/P (MAP) Pulse Ox O2 Delivery O2 Flow Rate FiO2 09/30/17 08:00 97.5 69 18 113/54 (73) 94 09/30/17 04:56 66 09/30/17 04:48 97.9 68 18 124/59 (80) 95 09/30/17 01:00 63 19 110/56 (74) 95 Room Air 09/30/17 00:13 66 16 117/55 (75) 96 Room Air 09/29/17 21:33 71 16 114/56 (75) 09/29/17 21:32 68 19 108/54 (72) 09/29/17 19:51 66 19 116/55 (75) 09/29/17 19:23 60 15 114/56 (75) 95 Room Air 09/29/17 18:47 97.7 75 23 136/61 (86) 95 Room Air Result Diagram: 09/30/17 0621 09/30/17 0621 Imaging Last Impressions Maxillofacial CT 09/29/17 0000 Signed Impressions: Service Date/Time: Friday, September 29, 2017 20:06 - CONCLUSION: No acute disease. Jose David Crews Jr., MD Hip and Pelvis X-Ray 09/29/17 0000 Signed Impressions: Service Date/Time: Friday, September 29, 2017 20:00 - CONCLUSION: No acute disease. Jose David Crews Jr., MD Head CT 09/29/17 0000 Signed Impressions: Service Date/Time: Friday, September 29, 2017 20:06 - CONCLUSION: Normal examination. Jose David Crews Jr., MD Cervical Spine CT 09/29/17 0000 Signed Impressions: Service Date/Time: Friday, September 29, 2017 20:06 - CONCLUSION: 1. No acute abnormality. 2. Multilevel degenerative changes. 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 Jose David Crews Jr., MD Objective Remarks GENERAL: This is a well-nourished, well-developed elderly female patient, in no apparent distress. Sitting up in bed. Awake and alert. SKIN: Cool and dry. No rash. HEAD: Atraumatic. Normocephalic. EYES: No scleral icterus. No injection or drainage. ENT: Nose without bleeding, purulent drainage or septal hematoma. Airway patent. Moist mucous membranes. NECK: Trachea midline. CARDIOVASCULAR: Regular rate and rhythm without murmurs, gallops, or rubs. RESPIRATORY: Clear to auscultation. Breath sounds equal bilaterally. No wheezes , rales, or rhonchi. GASTROINTESTINAL: Abdomen soft, non-tender, nondistended. No guarding. MUSCULOSKELETAL: Extremities without clubbing, cyanosis, or edema. No calf tenderness NEUROLOGICAL: Awake and alert. Able to move all extremities spontaneously. No focal neurologic findings appreciated. Motor and sensory grossly within normal limits. Normal speech. Medications and IVs Current Medications Medications (Trade) Dose Ordered Sig/Josie Route Start Time Stop Time Status Last Admin (NS Flush) 2 ml UNSCH PRN IV FLUSH 09/29/17 23:00 (NS Flush) 2 ml BID IV FLUSH 09/30/17 09:00 09/30/17 09:00 (Narcan Inj) 0.4 mg UNSCH PRN IV PUSH 09/29/17 23:00 (Abilify) 30 mg DAILY PO 10/01/17 09:00 UNV (Ecotrin Ec) 81 mg DAILY PO 10/01/17 09:00 UNV (Lipitor) 10 mg HS PO 09/30/17 21:00 UNV (Dulcolax Supp) 10 mg DAILY PRN RECTAL 09/30/17 09:15 UNV (KlonoPIN) 0.5 mg TID PO 09/30/17 13:00 UNV (Depakote Sprinkles) 125 mg BID PO 09/30/17 21:00 UNV (Lasix) 40 mg DAILY PO 10/01/17 09:00 UNV (Neurontin) 300 mg TID PO 09/30/17 13:00 UNV (KCl) 10 meq DAILY PO 10/01/17 09:00 UNV Non-Formulary Medication 50 mg DAILY PO 10/01/17 09:00 UNV Non-Formulary Medication 1 cap HS PO 09/30/17 21:00 UNV Non-Formulary Medication 1 drop HS RIGHT EYE 09/30/17 21:00 UNV (Lovenox Inj) 40 mg Q24H SQ 09/30/17 09:30 UNV A/P Assessment and Plan Syncope History of seizure disorder Phenytoin toxicity - CT of the head unremarkable - Fall precautions/seizure precautions - Dilantin level 36.5. Hold phenytoin. Repeat Dilantin level in a.m. - Continue on Depakote 125 mg by mouth twice a day - Consult neurology, appreciate assistance - 2-D echocardiogram - EEG study - Carotid Dopplers - CT of cervical spine reveals some significant disc degeneration with osteophyte disc complex at C5 6 which may have contributed to the fall. Will defer to neurology for possible MRI study for further workup. - Continuous cardiac monitoring - Obtain orthostatic blood pressure measurements - Hold all sedating medications - Obtain TSH level, lipid profile and hemoglobin A1c - PT recommends rehabilitation - she currently resides in assisted living facility Hyponatremia - Suspect due to poor oral intake - Resolved status post IV fluid hydration Dementia - Continue patient on Namzaric 1 cap po daily Dyslipidemia - Continue patient on Lipitor 10 mg daily DVT prophylaxis - Lovenox sq Discharge Planning Discharge pending neurology clearance. Jordyn Villarreal Sep 30, 2017 11:39
--- NOTE | 2017-09-30 11:39 | HHI.FF ---
Face to Face Verification Diagnosis: (1) Ataxia (2) Weakness (3) Impaired activities of daily living (4) Balance problem Physical Therapy Order: Evaluate and Treat, Improve ambulation, Strength and gait training I have seen patient Dianne Borden on 09/30/17. My clinical findings support the need for the requested home health care services because: Deconditioned w/ increased weakness Limited ability to care for self Impaired cognition/judgement High risk of falls I certify that my clinical findings support that this patient is homebound because: Post-op weakness Impaired cognitive ability/safety Unsteady gait/balance Unsafe to leave home unassisted Unable to use public transportation Jordyn Villarreal Sep 30, 2017 11:39
[2017-09-30] MEDS ORDERED: clonazePAM 0.5 MG TAB PO SCH (13:00)
[2017-09-30] MEDS: GABAPENTIN 300 MG CAP PO SCH ×2 (13:41→20:15)
[2017-09-30] MEDS: ENOXAPARIN SODIUM 40 MG/0.4 ML SYRINGE SQ SCH (13:41)
[2017-09-30 14:32] LABS: CHOLESTEROL 163 MG/DL (120-200); TRIGLYCERIDES 114 MG/DL (42-150)
--- NOTE | 2017-09-30 14:44 | RADRPT ---
EXAM DATE/TIME: 09/30/2017 14:00 [facility] COMPARISON: No previous studies available for comparison. INDICATIONS : Syncope. MEDICAL HISTORY : Hypercholesterolemia. Dementia. Seizures. SURGICAL HISTORY : None. ENCOUNTER: Initial ACUITY: 1 day PAIN SCORE: 0/10 LOCATION: Bilateral neck PEAK SYSTOLIC VELOCITIES (cm/sec): ICA/CCA RATIO: Right: 1.4 Left: 1.5 ICA: Right: 140 Left: 135 CCA: Right: 97 Left: 88 ECA: Right: 147 Left: 107 VERTEBRAL: Right: 65 antegrade Left: 94 antegrade Elevated flow velocities and ICA/CCA ratios have been found to correlate with increased degrees of vessel stenosis, calculated as percentage of diameter relative to a normal segment of distal ICA/CCA FINDINGS: RIGHT CAROTID: No significant stenosis is visualized. There is very mild calcified and noncalcified plaque in the ca rotid bulb and proximal external carotid artery. The waveforms are within normal limits. LEFT CAROTID: No significant stenosis is visualized. Very mild atherosclerotic plaque in the carotid bulb. The wav eforms are within normal limits. VERTEBRAL ARTERIES: Antegrade flow is seen in both vertebral arteries. MISCELLANEOUS: None. CONCLUSION: 1. Mild atherosclerotic disease within the carotid bulbs bilaterally. There is mildly elevated peak s ystolic velocity measurements in the distal right internal carotid artery and in the mid and distal l eft internal carotid artery. Based strictly on velocity measurements, there is a suggestion of 50-69% stenosis. However, visual assessment demonstrates no significant plaque or stenosis in these areas. If it would alter clinical management, could further evaluate with carotid artery CTA examination but it is felt unlikely that there is any significant stenosis. 2. There is antegrade flow within both vertebral arteries. Silverio Cleaning MD on September 30, 2017 at 14:38 Board Certified Radiologist. This report was verified electronically.
[2017-09-30 14:57] LABS: CHOLESTEROL/ HDL RATIO 2.67 RATIO; HDL CHOLESTEROL 60.9 MG/DL (40.0-60.0); LDL CHOLESTEROL 79 MG/DL (0-99)
--- NOTE | 2017-09-30 15:37 | ECHRPT ---
Indication: CVA/TIA CONCLUSIONS Normal left ventricular size. Wall thickness is normal. The left ventricular systolic function is normal with an estimated ejection fraction in the range of 60-65%. Trace aortic valve regurgitation. There is trace tricuspid valve regurgitation. BP: / HR: Rhythm: MEASUREMENTS (Male / Female) Normal Values Technical Quality:Good 2D ECHO LV Diastolic Diameter PLAX 4.0 cm 4.2 - 5.9 / 3.9 - 5.3 cm LV Systolic Diameter PLAX 3.0 cm IVS Diastolic Thickness 0.9 cm 0.6 - 1.0 / 0.6 - 0.9 cm LVPW Diastolic Thickness 0.7 cm 0.6 - 1.0 / 0.6 - 0.9 cm LV Relative Wall Thickness 0.4 RV Internal Dim ED PLAX 1.9 cm DOPPLER Mitral E Point Velocity 66.6 cm/s Mitral A Point Velocity 102.0 cm/s Mitral E to A Ratio 0.7 TR Peak Velocity 270.0 cm/s TR Peak Gradient 29.2 mmHg FINDINGS LEFT VENTRICLE Normal left ventricular size. Wall thickness is normal. The left ventricular systolic function is normal with an estimated ejection fraction in the range of 60-65%. RIGHT VENTRICLE Normal right ventricular size and systolic function. LEFT ATRIUM The left atrial size is normal. RIGHT ATRIUM The right atrial size is normal. ATRIAL SEPTUM Normal atrial septal thickness without atrial level shunting by limited color doppler interrogation. AORTA The aortic root and proximal ascending aorta are normal in size on limited imaging. MITRAL VALVE Structurally normal mitral valve. No mitral valve stenosis or regurgitation. AORTIC VALVE Trace aortic valve regurgitation. TRICUSPID VALVE There is trace tricuspid valve regurgitation. PULMONARY VALVE The pulmonary valve is not well visualized. VESSELS The inferior vena cava is normal in size. PERICARDIUM No pericardial effusion. Shaheed Paredes MD, FACC, FSCAI (Electronically Signed) Final Date:30 September 2017 15:37
--- NOTE | 2017-09-30 15:59 | MB ---
cc: ARAMIS HONG M.D. DATE OF CONSULTATION 09/30/2017 DATE OF 1940 REASON FOR CONSULTATION Dilantin toxicity, history of epilepsy. HISTORY OF PRESENT ILLNESS The patient is an elderly 76-year-old woman with short-term memory problems who comes in for dizziness, unable to ambulate appropriately, found to have a Dilantin level of 35. She has taken Dilantin for some time now, variable doses, guessing due to different levels. Lives in a detention. She is a poor historian. Apparently she may have had a fall last week. PAST MEDICAL HISTORY 1. Seizure. 2. History of ethanol abuse in the past. 3. Anxiety. 4. Depression. 5. Neuropathy. 6. Glaucoma. 7. Dementia. 8. Hyperlipidemia. PAST SURGICAL HISTORY Cholecystectomy from the old chart here. MEDICATIONS Medications at home: Please review per EMR. ALLERGIES None reported. FAMILY HISTORY Noncontributory. SOCIAL HISTORY No history of drugs, alcohol or smoking currently. PHYSICAL EXAMINATION VITAL SIGNS: Temperature 98.4, heart rate 81, respiratory rate 18, blood pressure supine 116/56, standing 113/56. NECK: Supple. HEART: Regular. NEUROLOGIC: She is awake and alert to herself, otherwise not very oriented. Pupils reactive. No nystagmus. Face symmetrical. She does have a chin tremor with posture and intention. No drift. No leg lag. DTRs are 1+. Gait is withheld. LABORATORY Labs are reviewed. MCV 102.2, platelets 134,000. PTT 24.5. Calcium 8.4. Lipids and B12 are pending. Her Dilantin level today is 36.5, yesterday 35.6. IMAGING Carotid ultrasound is pending results. CT of the spine shows multilevel degenerative changes. Head CT: Normal exam. IMPRESSION Dilantin toxicity in a 76-year-old woman. She is also on Depakote 125 mg twice a day, gabapentin 300 mg t.i.d., Klonopin 0.5 mg as needed. I am not sure why she is on Depakote at this point in time. Certainly her Depakote can be increased. I am trying to look through the chart as to why she may be on it. There is no report of migraine. There is no report of any significant bipolar. However, going up on the Depakote may cause her more side effects as well. PLAN/RECOMMENDATIONS At this point in time take her off Dilantin and switch her over to Keppra 500 mg q.12h. Her renal parameters are fine. Continue current care. Continue to monitor Dilantin level. Keeping her off Dilantin her level should normalize in the next few days. Will start her on the Keppra. EEG and echo are still pending results. Monitor for seizures. Continue Depakote and gabapentin as well. MD SUSAN George/JESSICA /2:36 PM /3:32 PM
[2017-09-30 16:32] LABS: BACTERIA, URINE RARE /hpf; BILIRUBIN, URINE NEG (NEG); BLOOD, URINE NEG (NEG); GLUCOSE,URINE NEG (NEG); KETONE, URINE NEG (NEG); NITRITE,URINE NEG (NEG); SQUAMOUS EPITHELIAL CELL URINE <1 /hpf (0-5); URINE COLOR YELLOW (YELLW/STRAW); URINE LEUKOCYTE ESTERASE NEG (NEG)
[2017-09-30] MEDS ORDERED: DONEPEZIL PO SCH (21:00)
[2017-09-30] MEDS ORDERED: MEMANTINE PO SCH (21:00)
[2017-09-30] MEDS: LATANOPROST 0.005% OPHT SOLN 2.5 ML BTL RIGHT EYE SCH (22:12)
[2017-09-30] MEDS: levETIRAcetam 250 MG TAB PO SCH (22:12)
[2017-09-30] MEDS: DIVALPROEX SODIUM SPRINKLES 125 MG CAP PO SCH (22:12)
[2017-09-30] MEDS: ATORVASTATIN 10 MG TAB PO SCH (22:13)
[2017-09-30 22:28] LABS: HEMOGLOBIN A1C 5.7 % (4.3-6.0)
[2017-10-01] VITALS (9 sets, daily range): BP systolic 92–119; BP diastolic 50–58; PULSE 65–76; RESP 15–20; TEMP 95.6–98.4; O2SAT 90–96
[2017-10-01] MEDS ORDERED: DESVENLAFAXINE 50 MG PO SCH (09:00)
[2017-10-01] MEDS ORDERED: IOHEXOL 350 MG/ML 10 ML VIAL (for RAD DIAG) IVCONTRAST ONE (09:29)
[2017-10-01] MEDS: ARIPiprazole 30 MG TAB PO SCH (09:53)
[2017-10-01] MEDS: POTASSIUM CHLORIDE 10 MEQ CONTROLLED RELEASE TAB PO SCH (09:53)
[2017-10-01] MEDS: levETIRAcetam 250 MG TAB PO SCH ×2 (09:53→20:13)
[2017-10-01] MEDS: ASPIRIN EC 81 MG TABEC PO SCH (09:54)
[2017-10-01] MEDS: FUROSEMIDE 40 MG TAB PO SCH (09:54)
[2017-10-01] MEDS: GABAPENTIN 300 MG CAP PO SCH ×3 (09:54→18:16)
[2017-10-01] MEDS: DIVALPROEX SODIUM SPRINKLES 125 MG CAP PO SCH ×2 (09:54→20:13)
[2017-10-01] MEDS: SODIUM CHLORIDE 0.9% FLUSH 10 ML FLUSH IV FLUSH SCH ×2 (09:55→20:14)
--- NOTE | 2017-10-01 10:21 | RADRPT ---
EXAM DATE/TIME: 10/01/2017 09:13 [facility] COMPARISON: No previous studies available for comparison. INDICATIONS : Syncope IV CONTRAST: 74 cc Omnipaque 350 (iohexol) IV RADIATION DOSE: 10.54 CTDIvol (mGy) MEDICAL HISTORY : Seizures. Dementia. SURGICAL HISTORY : None. ENCOUNTER: Initial ACUITY: 3 days PAIN SCALE: 5/10 LOCATION: neck Elevated flow velocities and ICA/CCA ratios have been found to correlate with increased degrees of vessel stenosis, calculated as percentage of diameter relative to a normal segment of distal ICA/CCA. TECHNIQUE: Volumetric scanning was performed using a multirow detector CT scanner. The data was post processed with a variety of visualization algorithms including full-volume maximum intensity projection, multip lanar sliding thin-slab reformation, curved-planar reformation, and surface-rendering techniques. Us ing automated exposure control and adjustment of the mA and/or kV according to patient size, radiatio n dose was kept as low as reasonably achievable to obtain optimal diagnostic quality images. DICOM f ormat image data is available electronically for review and comparison. FINDINGS: AORTIC ARCH: There is a three-vessel origin of the great vessels from the aorta. No evidence of ostial narrowing. RIGHT CAROTID: There is no significant carotid bifurcation stenosis. The upper cervical internal carotid artery is n otable for mild beading consistent with fibromuscular dysplasia. LEFT CAROTID: There is no significant carotid bifurcation stenosis. The mid cervical internal carotid artery is not able for mild beading consistent with fibromuscular dysplasia VERTEBRALS: Vertebral arteries are patent bilaterally, left side dominant. Elsewhere on the exam, note is made of a large air and debris containing mass in the left paramedian retroesophageal region, appearance most consistent with a large Zenker's diverticulum. 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 This report was verified electronically.
[2017-10-01] MEDS: ENOXAPARIN SODIUM 40 MG/0.4 ML SYRINGE SQ SCH (12:41)
--- NOTE | 2017-10-01 14:52 | HHI.PR ---
Subjective Remarks Patient in nad. Sitting up in the chair. Says she is still dizzy, explaints it like lightheadedness. Able to eat. Has some tremors at baseline. No new motor deficit No changein vision. no vertigol .No seizures says she used to be on dilantin in the past 2/2 seizures stopped meds 6 years ago and did not have any seizures. Objective Vitals Vital Signs Date Time Temp Pulse Resp B/P (MAP) Pulse Ox O2 Delivery O2 Flow Rate FiO2 10/01/17 13:10 95.7 76 18 113/58 (76) 90 10/01/17 11:45 67 10/01/17 08:48 95.6 70 20 113/52 (72) 95 10/01/17 07:47 65 10/01/17 04:46 69 10/01/17 04:00 98.0 71 18 104/51 (68) 95 10/01/17 00:00 98.4 76 18 119/58 (78) 94 09/30/17 21:49 97.9 71 18 106/54 (71) 93 09/30/17 16:00 97.6 70 18 120/60 (80) 95 I/O 09/30/17 09/30/17 09/30/17 10/01/17 10/01/17 10/01/17 07:00 15:00 23:00 07:00 15:00 23:00 Intake Total 240 ml 120 ml Output Total 600 ml Balance 240 ml -480 ml Intake Oral 240 ml 120 ml Output Urine Total 600 ml # Voids 2 # Bowel Movements 0 Result Diagram: 09/30/17 0621 09/30/17 0621 Imaging Last Impressions Neck CTA 10/01/17 0000 Signed Impressions: Service Date/Time: September 09:13 - CONCLUSION: 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 Mild atherosclerotic disease within the carotid bulbs bilaterally. There is mildly elevated peak systolic velocity measurements in the distal right internal carotid artery and in the mid and distal left internal carotid artery. Based strictly on velocity measurements, there is a suggestion of 50-69%% stenosis. However, visual assessment demonstrates no significant plaque or stenosis in these areas. If it would alter clinical management, could further evaluate with carotid artery CTA examination but it is felt unlikely that there is any significant stenosis. 2. There is antegrade flow within both vertebral arteries. Silverio Cleaning MD Maxillofacial CT 09/29/17 0000 Signed Impressions: Service Date/Time: Friday, September 29, 2017 20:06 - CONCLUSION: No acute disease. Jose David Crews Jr., MD Hip and Pelvis X-Ray 09/29/17 0000 Signed Impressions: Service Date/Time: Friday, September 29, 2017 20:00 - CONCLUSION: No acute disease. Jose David Crews Jr., MD Head CT 09/29/17 0000 Signed Impressions: Service Date/Time: Friday, September 29, 2017 20:06 - CONCLUSION: Normal examination. Jose David Crews Jr., MD Cervical Spine CT 09/29/17 0000 Signed Impressions: Service Date/Time: Friday, September 29, 2017 20:06 - CONCLUSION: 1. No acute abnormality. 2. Multilevel degenerative changes. 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 Jose David Crews Jr., MD Objective Remarks GENERAL: This is a well-nourished, well-developed elderly female patient, in no apparent distress. Sitting up in bed. Awake and alert. CARDIOVASCULAR: Regular rate and rhythm without murmurs, gallops, or rubs. RESPIRATORY: Clear to auscultation. Breath sounds equal bilaterally. No wheezes , rales, or rhonchi. GASTROINTESTINAL: Abdomen soft, non-tender, nondistended. No guarding. MUSCULOSKELETAL: Extremities without clubbing, cyanosis, or edema. No calf tenderness NEUROLOGICAL: Awake and alert. Able to move all extremities spontaneously. No focal neurologic findings appreciated. Motor and sensory grossly within normal limits. Normal speech. A/P Assessment and Plan Syncope History of seizure disorder Phenytoin toxicity - CT of the head unremarkable - Fall precautions/seizure precautions - Dilantin level 36.5. Hold phenytoin. Repeat Dilantin level in a.m. - Continue on Depakote 125 mg by mouth twice a day - Consult neurology, appreciate assistance - 2-D echocardiogram - EEG study - Carotid Dopplers with 60 % occlusion however CTA doesn't show occlusion. CTA neck also significant for large Zenker diverticulum. Consult GI - CT of cervical spine reveals some significant disc degeneration with osteophyte disc complex at C5 6 which may have contributed to the fall. Will defer to neurology for possible MRI study for further workup. - Continuous cardiac monitoring - Obtain orthostatic blood pressure measurements - Hold all sedating medications - Obtain TSH level, lipid profile and hemoglobin A1c - PT recommends rehabilitation - she currently resides in assisted living facility Zenker diverticulum per CT neck CT neck also significant for large Zenker diverticulum. Consult GI Hyponatremia - Suspect due to poor oral intake - Resolved status post IV fluid hydration Dementia - Continue patient on Namzaric 1 cap po daily Dyslipidemia - Continue patient on Lipitor 10 mg daily DVT prophylaxis - Lovenox sq Discharge Planning Discharge pending neurology clearance. Maddy Thomas MD Oct 01, 2017 14:52
--- NOTE | 2017-10-01 16:12 | PD.CONS ---
HPI History of Present Illness This is a 76 year old lady with hx seizure disorder, dementia, falls who presented to ER for worsening gait and repeated falls. SHe was found to have elevated phenytoin, 35. GI has been consulted for finding of diverticulum upper cervical esophagus. She admits some difficulty swallowing for the last month or 2. SHe has bolus sensation when she eats and sometimes after a meal regurgitates food. Denies nausea and vomiting. Never had EGD, not sure if she has had colonsocopy. Pt is limited historian. (Griselda Child) PFSH Past Medical History Per fdc notes: seizure prior hx of etoh abuse anxiety depression neuropathy glaucoma dementia hyperlipidemia Past Surgical History Unknown (Griselda Child) Coded Allergies: No Known Allergies (Verified Allergy, Unknown, 09/29/17) Family History father- [place] Social History denies smoking/ etoh abuse/ drug abuse (Griselda Child) Review of Systems Gastrointestinal: DENIES: Abdominal pain, Nausea, Vomiting otherwise noncontributory, "my memory is bad." (Griselda Child) GI Exam Vitals I&O Vital Signs Date Time Temp Pulse Resp B/P (MAP) Pulse Ox O2 Delivery O2 Flow Rate FiO2 10/01/17 13:10 95.7 76 18 113/58 (76) 90 10/01/17 11:45 67 10/01/17 08:48 95.6 70 20 113/52 (72) 95 10/01/17 07:47 65 10/01/17 04:46 69 10/01/17 04:00 98.0 71 18 104/51 (68) 95 10/01/17 00:00 98.4 76 18 119/58 (78) 94 09/30/17 21:49 97.9 71 18 106/54 (71) 93 I/O 09/30/17 09/30/17 09/30/17 10/01/17 10/01/17 10/01/17 07:00 15:00 23:00 07:00 15:00 23:00 Intake Total 240 ml 120 ml Output Total 600 ml Balance 240 ml -480 ml Intake Oral 240 ml 120 ml Output Urine Total 600 ml # Voids 2 # Bowel Movements 0 Imaging Last Impressions Neck CTA 10/01/17 0000 Signed Impressions: Service Date/Time: September 09:13 - CONCLUSION: 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 Mild atherosclerotic disease within the carotid bulbs bilaterally. There is mildly elevated peak systolic velocity measurements in the distal right internal carotid artery and in the mid and distal left internal carotid artery. Based strictly on velocity measurements, there is a suggestion of 50-69%% stenosis. However, visual assessment demonstrates no significant plaque or stenosis in these areas. If it would alter clinical management, could further evaluate with carotid artery CTA examination but it is felt unlikely that there is any significant stenosis. 2. There is antegrade flow within both vertebral arteries. Silverio Cleaning MD Maxillofacial CT 09/29/17 0000 Signed Impressions: Service Date/Time: Friday, September 29, 2017 20:06 - CONCLUSION: No acute disease. Jose David Crews Jr., MD Hip and Pelvis X-Ray 09/29/17 0000 Signed Impressions: Service Date/Time: Friday, September 29, 2017 20:00 - CONCLUSION: No acute disease. Jose David Crews Jr., MD Head CT 09/29/17 0000 Signed Impressions: Service Date/Time: Friday, September 29, 2017 20:06 - CONCLUSION: Normal examination. Jose David Crews Jr., MD Cervical Spine CT 09/29/17 0000 Signed Impressions: Service Date/Time: Friday, September 29, 2017 20:06 - CONCLUSION: 1. No acute abnormality. 2. Multilevel degenerative changes. 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 Jose David Crews Jr., MD Laboratory Test 10/01/17 06:45 Physical Examination HEENT: normocephalic; atraumatic; no jaundice. CHEST: CTA CARDIAC: RRR ABDOMEN: Soft, nondistended, nontender; no hepatosplenomegaly; bowel sounds are present in all four quadrants. EXTREMITIES: No clubbing, cyanosis, or edema. SKIN: Normal; no rash; no jaundice. SWING TENDER: lethargic (Griselda Child S ROTARY DRIER FEEDER) Assessment and Plan Plan ASSESSMENT - zenker's diverticulum, dysphagia - diverticulum involving upper cervical esophagus seen on neck CT. pt cites difficulty swallowing last 1-2 months, bolus sensation, occasional regurgitation after meals. no further details as pt is poor historian. unclear how severe the symptoms are. PLAN - swallow eval - if symptoms severe can do myotomy, this can be done on outpt basis - mech soft diet for now - supportive care - further recs to follow swallow eval pt seen by myself and Dr Barahona and this note is written on his behalf (Griselda Child) Physician Comments Patient was seen and examined Agree with above Continue with current supportive care Monitor labs Further recommendations shall depend on the findings of the swallow evaluation by speech therapy Will consider upper esophageal sphincter myotomy if symptoms were deemed to be significant or severe or if there is any resulting complications such as weight loss and malnutrition (Mario Barahona MD) Griselda Child Oct 01, 2017 16:12 Mario Barahona MD Oct 01, 2017 23:53
[2017-10-01] MEDS: LATANOPROST 0.005% OPHT SOLN 2.5 ML BTL RIGHT EYE SCH (20:14)
[2017-10-01] MEDS: ATORVASTATIN 10 MG TAB PO SCH (20:14)
[2017-10-02] VITALS (12 sets, daily range): BP systolic 95–134; BP diastolic 51–65; PULSE 68–105; RESP 16–19; TEMP 97.5–98.7; O2SAT 93–96
[2017-10-02 06:09] LABS: AUTOMATED NEUTROPHIL # 1.6 TH/MM3 (1.8-7.7); BASOPHIL % 0.6 % (0.0-2.0); EOSINOPHIL # 0.2 TH/MM3 (0-0.4); EOSINOPHIL % 4.7 % (0.0-4.0); HEMATOCRIT 36.9 % (35.0-46.0); HEMOGLOBIN 13.1 GM/DL (11.6-15.3); LYMPH % 45.7 % (9.0-44.0); MEAN CELL VOLUME 101.8 FL (80.0-100.0); MEAN CORPUSCULAR HEMOGLOBIN 36.2 PG (27.0-34.0); MEAN CORPUSCULAR HGB CONC 35.6 % (32.0-36.0); MEAN PLATELET VOLUME 8.2 FL (7.0-11.0); MONO % 13.1 % (0.0-8.0); MONOCYTE # 0.6 TH/MM3 (0-0.9); NEUT % 35.9 % (16.0-70.0); PLATELET COUNT 111 TH/MM3 (150-450); RED BLOOD COUNT 3.63 MIL/MM3 (4.00-5.30); RED CELL DISTRIBUTION WIDTH 13.1 % (11.6-17.2); WHITE BLOOD COUNT 4.4 TH/MM3 (4.0-11.0)
[2017-10-02 06:38] LABS: BICARBONATE 27.7 MEQ/L (21.0-32.0); CALCIUM 8.7 MG/DL (8.5-10.1); CREATININE 0.36 MG/DL (0.50-1.00)
[2017-10-02] MEDS: FUROSEMIDE 40 MG TAB PO SCH (09:39)
[2017-10-02] MEDS: levETIRAcetam 250 MG TAB PO SCH ×2 (09:39→21:51)
[2017-10-02] MEDS: POTASSIUM CHLORIDE 10 MEQ CONTROLLED RELEASE TAB PO SCH (09:39)
[2017-10-02] MEDS: DIVALPROEX SODIUM SPRINKLES 125 MG CAP PO SCH ×2 (09:39→21:50)
[2017-10-02] MEDS: ASPIRIN EC 81 MG TABEC PO SCH (09:39)
[2017-10-02] MEDS: ARIPiprazole 30 MG TAB PO SCH (09:39)
[2017-10-02] MEDS: GABAPENTIN 300 MG CAP PO SCH ×3 (09:39→18:26)
[2017-10-02] MEDS: SODIUM CHLORIDE 0.9% FLUSH 10 ML FLUSH IV FLUSH SCH ×2 (09:40→21:50)
--- NOTE | 2017-10-02 09:51 | HHI.GIFU ---
Subjective Remarks This is a 76 year old female patient that came to the ER with a complaint of worsening gait and repeated falls due to phenytoin toxicity. GI was consulted due to a diverticulum found in the upper cervical esophagus on neck CT. The patient admits having some difficulty with swallowing food, but symptoms seem to be improved this morning. She was able to eat solid food without cough. She says she has a globus sensation in her neck. Denies abdominal pain, nausea, vomiting, diarrhea. (Lucia Stoll) Objective Vitals I&O Vital Signs Date Time Temp Pulse Resp B/P (MAP) Pulse Ox O2 Delivery O2 Flow Rate FiO2 10/02/17 08:00 97.8 74 18 103/51 (68) 94 10/02/17 04:53 97.5 73 16 95/55 (68) 93 10/02/17 03:25 73 10/02/17 00:28 98.6 76 16 112/55 (74) 95 10/01/17 20:42 98.0 73 15 92/55 (67) 96 10/01/17 17:31 95.7 72 18 102/50 (67) 96 10/01/17 13:10 95.7 76 18 113/58 (76) 90 10/01/17 11:45 67 I/O 10/01/17 10/01/17 10/01/17 10/02/17 10/02/17 10/02/17 07:00 15:00 23:00 07:00 15:00 23:00 Intake Total 120 ml Output Total 600 ml Balance -480 ml Intake Oral 120 ml Output Urine Total 600 ml # Voids 1 1 # Bowel Movements 0 Laboratory Laboratory Tests Test 10/02/17 05:14 White Blood Count 4.4 Red Blood Count 3.63 Hemoglobin 13.1 Hematocrit 36.9 Mean Corpuscular Volume 101.8 Mean Corpuscular Hemoglobin 36.2 Mean Corpuscular Hemoglobin Concent 35.6 Red Cell Distribution Width 13.1 Platelet Count 111 Mean Platelet Volume 8.2 Neutrophils (%) (Auto) 35.9 Lymphocytes (%) (Auto) 45.7 Monocytes (%) (Auto) 13.1 Eosinophils (%) (Auto) 4.7 Basophils (%) (Auto) 0.6 Neutrophils # (Auto) 1.6 Lymphocytes # (Auto) 2.0 Monocytes # (Auto) 0.6 Eosinophils # (Auto) 0.2 Basophils # (Auto) 0.0 CBC Comment DIFF FINAL Differential Comment Blood Urea Nitrogen 7 Creatinine 0.36 Random Glucose 83 Calcium Level 8.7 Sodium Level 139 Potassium Level 3.0 Chloride Level 102 Carbon Dioxide Level 27.7 Anion Gap 9 Estimat Glomerular Filtration Rate 174 Imaging Last Impressions Neck CTA 10/01/17 0000 Signed Impressions: Service Date/Time: September 09:13 - CONCLUSION: 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 Mild atherosclerotic disease within the carotid bulbs bilaterally. There is mildly elevated peak systolic velocity measurements in the distal right internal carotid artery and in the mid and distal left internal carotid artery. Based strictly on velocity measurements, there is a suggestion of 50-69%% stenosis. However, visual assessment demonstrates no significant plaque or stenosis in these areas. If it would alter clinical management, could further evaluate with carotid artery CTA examination but it is felt unlikely that there is any significant stenosis. 2. There is antegrade flow within both vertebral arteries. Silverio Cleaning MD Maxillofacial CT 09/29/17 0000 Signed Impressions: Service Date/Time: Friday, September 29, 2017 20:06 - CONCLUSION: No acute disease. Jose David Crews Jr., MD Hip and Pelvis X-Ray 09/29/17 0000 Signed Impressions: Service Date/Time: Friday, September 29, 2017 20:00 - CONCLUSION: No acute disease. Jose David Crews Jr., MD Head CT 09/29/17 0000 Signed Impressions: Service Date/Time: Friday, September 29, 2017 20:06 - CONCLUSION: Normal examination. Jose David Crews Jr., MD Cervical Spine CT 09/29/17 0000 Signed Impressions: Service Date/Time: Friday, September 29, 2017 20:06 - CONCLUSION: 1. No acute abnormality. 2. Multilevel degenerative changes. 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 Jose David Crews Jr., MD Physical Exam HEENT: Pupils round and reactive to light; normocephalic; atraumatic; no jaundice. Oral cavity clear without food NECK: Neck is supple CHEST: Chest is clear without rhonchi CARDIAC: Regular rate and rhythm with no murmur gallop or rubs. ABDOMEN: Round, Soft, nondistended, nontender; occasional generalized pain in the xavier-umbilicus area, bowel sounds soft EXTREMITIES: No clubbing, cyanosis, or edema. SKIN: Normal; no rash; no jaundice. TEST DRIVER: Awake attempts to answer simple questions, poor historian (Lucia Stoll) Assessment and Plan Plan ASSESSMENT - zenker's diverticulum, dysphagia - diverticulum involving upper cervical esophagus seen on neck CT. pt cites difficulty swallowing last 1-2 months, bolus sensation, occasional regurgitation after meals. no further details as pt is poor historian. States symptoms are better today PLAN - swallow eval done, recommended Barium Swallow, ordered. - if symptoms severe can do myotomy, [facility], and continue to monitor swallow - supportive care - further recs to follow after testing pt seen by myself and Dr Barahona and this note is written on his behalf (Lucia Stoll) Physician Comments Patient seen and examined Agree with above Continue with current supportive care Monitor labs Consider upper esophageal sphincter myotomy (Mario Barahona MD) Lucia Stoll Oct 02, 2017 09:51 Mario Barahona MD Oct 02, 2017 22:43
--- NOTE | 2017-10-02 10:08 | MG ---
cc: MICHELLE DOLAN M.D. Lab No: [id number] Date: 10/02/2017 Age: 76 Sex: F Race: __ INDICATIONS A 76-year-old who fell at an assisted living. Dementia, seizures. MEDICATIONS 1. Abilify 2. Lipitor 3. Depakote 4. Neurontin 5. Keppra DESCRIPTION Diffuse 7-8 Hz, 60 microvolt rhythm is seen. The recording overall is synchronous and symmetric. The patient appears to fall asleep and does not and quite reach stage II sleep. Photic stimulation was performed without significant posterior driving. The patient is noted to snore. Hyperventilation is not performed. IMPRESSION Some mild diffuse 7 Hz slowing consistent with a mild diffuse encephalopathy, but no focal abnormality was noted. No seizure activity was seen. MD SAUNDRA Acevedo/KITA /9:33 AM /9:57 AM
[2017-10-02] MEDS: ENOXAPARIN SODIUM 40 MG/0.4 ML SYRINGE SQ SCH (13:21)
--- NOTE | 2017-10-02 15:24 | HHI.PR ---
Subjective Remarks In the chair. Feels improving. No fever or chills. No n/v/d/c. No new motor deficit. Denies change in vision. Swallowing problems with solids, but eating better. Objective Vitals Vital Signs Date Time Temp Pulse Resp B/P (MAP) Pulse Ox O2 Delivery O2 Flow Rate FiO2 10/02/17 13:00 84 10/02/17 12:00 98.7 84 18 134/65 (88) 96 10/02/17 08:30 80 10/02/17 08:00 97.8 74 18 103/51 (68) 94 10/02/17 04:53 97.5 73 16 95/55 (68) 93 10/02/17 03:25 73 10/02/17 00:28 98.6 76 16 112/55 (74) 95 10/01/17 20:42 98.0 73 15 92/55 (67) 96 10/01/17 17:31 95.7 72 18 102/50 (67) 96 I/O 10/01/17 10/01/17 10/01/17 10/02/17 10/02/17 10/02/17 07:00 15:00 23:00 07:00 15:00 23:00 Intake Total 120 ml 475 ml Output Total 600 ml Balance -480 ml 475 ml Intake Oral 120 ml 475 ml Output Urine Total 600 ml # Voids 1 1 # Bowel Movements 0 Result Diagram: 10/02/17 0514 10/02/17 0514 Imaging Last Impressions Neck CTA 10/01/17 0000 Signed Impressions: Service Date/Time: September 09:13 - CONCLUSION: 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 Mild atherosclerotic disease within the carotid bulbs bilaterally. There is mildly elevated peak systolic velocity measurements in the distal right internal carotid artery and in the mid and distal left internal carotid artery. Based strictly on velocity measurements, there is a suggestion of 50-69%% stenosis. However, visual assessment demonstrates no significant plaque or stenosis in these areas. If it would alter clinical management, could further evaluate with carotid artery CTA examination but it is felt unlikely that there is any significant stenosis. 2. There is antegrade flow within both vertebral arteries. Silverio Cleaning MD Maxillofacial CT 09/29/17 0000 Signed Impressions: Service Date/Time: Friday, September 29, 2017 20:06 - CONCLUSION: No acute disease. Jose David Crews Jr., MD Hip and Pelvis X-Ray 09/29/17 0000 Signed Impressions: Service Date/Time: Friday, September 29, 2017 20:00 - CONCLUSION: No acute disease. Jose David Crews Jr., MD Head CT 09/29/17 0000 Signed Impressions: Service Date/Time: Friday, September 29, 2017 20:06 - CONCLUSION: Normal examination. Jose David Crews Jr., MD Cervical Spine CT 09/29/17 0000 Signed Impressions: Service Date/Time: Friday, September 29, 2017 20:06 - CONCLUSION: 1. No acute abnormality. 2. Multilevel degenerative changes. 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 Jose David Crews Jr., MD Objective Remarks GENERAL: This is a well-nourished, well-developed elderly female patient, in no apparent distress. Sitting up in bed. Awake and alert. CARDIOVASCULAR: Regular rate and rhythm without murmurs, gallops, or rubs. RESPIRATORY: Clear to auscultation. Breath sounds equal bilaterally. No wheezes , rales, or rhonchi. GASTROINTESTINAL: Abdomen soft, non-tender, nondistended. No guarding. MUSCULOSKELETAL: Extremities without clubbing, cyanosis, or edema. No calf tenderness NEUROLOGICAL: Awake and alert. Able to move all extremities spontaneously. No focal neurologic findings appreciated. Motor and sensory grossly within normal limits. Normal speech. A/P Assessment and Plan Syncope History of seizure disorder Phenytoin toxicity Admit inpatient CT of the head unremarkable Fall precautions/seizure precautions Dilantin level 36.5. Hold phenytoin. Repeat Dilantin level in a.m. Continue on Depakote 125 mg by mouth twice a day Consult neurology, appreciate assistance 2-D echocardiogram EEG study Carotid Dopplers with 60 % occlusion however CTA doesn't show occlusion. CTA neck also significant for large Zenker diverticulum. Consult GI CT of cervical spine reveals some significant disc degeneration with osteophyte disc complex at C5 6 which may have contributed to the fall. Will defer to neurology for possible MRI study for further workup. Continuous cardiac monitoring Obtain orthostatic blood pressure measurements Hold all sedating medications Obtain TSH level, lipid profile and hemoglobin A1c PT recommends rehabilitation - she currently resides in assisted living facility Zenker diverticulum per CT neck CT neck also significant for large Zenker diverticulum. Consult GI, plan for barium swallowing study . Advance diet per ST and GI recommendations Hyponatremia Suspect due to poor oral intake Resolved status post IV fluid hydration Dementia Continue patient on Namzaric 1 cap po daily Dyslipidemia Continue patient on Lipitor 10 mg daily DVT prophylaxis - Lovenox sq Discharge Planning Discharge pending neurology clearance, GI clearance, also pending barium swallow micaela [place] later today or tomorrow Maddy Thomas MD Oct 02, 2017 15:24
[2017-10-02] MEDS ORDERED: POTASSIUM CHLORIDE 10 MEQ CONTROLLED RELEASE TAB PO ONE (21:45)
[2017-10-02] MEDS: LATANOPROST 0.005% OPHT SOLN 2.5 ML BTL RIGHT EYE SCH (21:49)
[2017-10-02] MEDS: ATORVASTATIN 10 MG TAB PO SCH (21:51)
[2017-10-03] VITALS (11 sets, daily range): BP systolic 109–136; BP diastolic 54–63; PULSE 70–84; RESP 17–20; TEMP 97.4–98.2; O2SAT 90–97
[2017-10-03] MEDS: GABAPENTIN 300 MG CAP PO SCH ×3 (09:00→18:31)
--- NOTE | 2017-10-03 10:05 | RADRPT ---
EXAM DATE/TIME: 10/03/2017 09:41 [facility] COMPARISON: CT CERVICAL SPINE W/O CONTRAST, September 29, 2017, 20:06. INDICATIONS : Dysphagia FLUORO TIME: .3 minutes IMAGE COUNT: 9 CONTRAST: 1. Liquid E-Z Paque Barium Sulfate (60% w/v, 41% w.w) MEDICAL HISTORY : None. SURGICAL HISTORY : None. ENCOUNTER: Initial ACUITY: 3 days PAIN SCORE: 0/10 LOCATION: Esophagus FINDINGS: Single contrast examination demonstrates a large approximate 3-4 cm Zenker's diverticulum with ingest ed material within it. The esophagus appears intact. CONCLUSION: Huge Zenker's diverticulum. Afshin Lyon MD on October 03, 2017 at 10:01 Board Certified Radiologist. This report was verified electronically.
[2017-10-03 10:09] LABS: BICARBONATE 25.7 MEQ/L (21.0-32.0); CREATININE 0.46 MG/DL (0.50-1.00); MAGNESIUM 2.2 MG/DL (1.5-2.5)
[2017-10-03] MEDS: SODIUM CHLORIDE 0.9% FLUSH 10 ML FLUSH IV FLUSH SCH ×2 (11:40→21:44)
[2017-10-03] MEDS: ENOXAPARIN SODIUM 40 MG/0.4 ML SYRINGE SQ SCH (11:41)
[2017-10-03] MEDS: FUROSEMIDE 40 MG TAB PO SCH (11:41)
[2017-10-03] MEDS: ARIPiprazole 30 MG TAB PO SCH (11:41)
[2017-10-03] MEDS: ASPIRIN EC 81 MG TABEC PO SCH (11:41)
[2017-10-03] MEDS: levETIRAcetam 250 MG TAB PO SCH ×2 (11:42→21:44)
[2017-10-03] MEDS: DIVALPROEX SODIUM SPRINKLES 125 MG CAP PO SCH ×2 (11:42→21:44)
[2017-10-03] MEDS: POTASSIUM CHLORIDE 10 MEQ CONTROLLED RELEASE TAB PO SCH (11:42)
--- NOTE | 2017-10-03 14:39 | HHI.GIFU ---
Subjective Remarks Patient sitting in the chair doing well she did well for breakfast no complaints this is confirmed by the nurse Objective Vitals I&O Vital Signs Date Time Temp Pulse Resp B/P (MAP) Pulse Ox O2 Delivery O2 Flow Rate FiO2 10/03/17 12:22 98.2 70 18 136/63 (87) 96 10/03/17 11:57 80 10/03/17 08:02 98.2 72 20 112/60 (77) 96 10/03/17 07:26 72 10/03/17 05:17 72 10/03/17 05:14 71 18 97 10/03/17 04:40 98.0 72 18 109/54 (72) 90 10/03/17 00:04 77 10/02/17 23:30 98.5 74 18 112/64 (80) 94 10/02/17 20:07 86 10/02/17 20:00 98.0 68 18 106/58 (74) 94 102/62 (75) 108/56 (73) 10/02/17 18:31 105 10/02/17 16:00 98.7 76 19 129/61 (83) 96 I/O 10/02/17 10/02/17 10/02/17 10/03/17 10/03/17 10/03/17 07:00 15:00 23:00 07:00 15:00 23:00 Intake Total 475 ml 545 ml Balance 475 ml 545 ml Intake Oral 475 ml 545 ml # Voids 1 2 3 # Bowel Movements 0 Laboratory Laboratory Tests Test 10/03/17 04:13 10/03/17 09:17 Blood Urea Nitrogen 7 Creatinine 0.46 Random Glucose 112 Calcium Level 9.0 Magnesium Level 2.2 Sodium Level 140 Potassium Level 4.1 Chloride Level 106 Carbon Dioxide Level 25.7 Anion Gap 8 Estimat Glomerular Filtration Rate 131 Phenytoin (Dilantin) Level 25.7 Imaging Last Impressions Barium Swallow X-Ray 10/03/17 0000 Signed Impressions: Service Date/Time: Tuesday, October 03, 2017 09:41 - CONCLUSION: Huge Zenker' s diverticulum. 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 Mild atherosclerotic disease within the carotid bulbs bilaterally. There is mildly elevated peak systolic velocity measurements in the distal right internal carotid artery and in the mid and distal left internal carotid artery. Based strictly on velocity measurements, there is a suggestion of 50-69%% stenosis. However, visual assessment demonstrates no significant plaque or stenosis in these areas. If it would alter clinical management, could further evaluate with carotid artery CTA examination but it is felt unlikely that there is any significant stenosis. 2. There is antegrade flow within both vertebral arteries. Silverio Cleaning MD Maxillofacial CT 09/29/17 0000 Signed Impressions: Service Date/Time: Friday, September 29, 2017 20:06 - CONCLUSION: No acute disease. Jose David Crews Jr., MD Hip and Pelvis X-Ray 09/29/17 0000 Signed Impressions: Service Date/Time: Friday, September 29, 2017 20:00 - CONCLUSION: No acute disease. Jose David Crews Jr., MD Head CT 09/29/17 0000 Signed Impressions: Service Date/Time: Friday, September 29, 2017 20:06 - CONCLUSION: Normal examination. Jose David Crews Jr., MD Cervical Spine CT 09/29/17 0000 Signed Impressions: Service Date/Time: Friday, September 29, 2017 20:06 - CONCLUSION: 1. No acute abnormality. 2. Multilevel degenerative changes. 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 Jose David Crews Jr., MD Physical Exam HEENT: normocephalic; atraumatic; no jaundice. Oral cavity clear without food NECK: Neck is supple CHEST: Chest is clear without rhonchi CARDIAC: Regular rate and rhythm with no murmur gallop or rubs. ABDOMEN: Round, Soft, nondistended, nontender; occasional generalized pain in the xavier-umbilicus area, bowel sounds soft EXTREMITIES: No clubbing, cyanosis, or edema. SKIN: Normal; no rash; no jaundice. REPORTING ANALYST: Awake attempts to answer simple questions, poor historian Assessment and Plan Plan Patient with some dysphagia but apparently with no consequences there has been no issues of coughing and choking bronchitis pneumonia and aspiration the patient seems to be content and is doing well with intake at this point no further action is necessary If the patient becomes symptomatic then one can consider endoscopic myotomy For now just some regular and routine precautionary measures We will sign off Mario Barahona MD Oct 03, 2017 14:38
--- NOTE | 2017-10-03 16:38 | HHI.PR ---
Subjective Remarks Patient in the chair. Some discomfort while eating but able to tolerate food. No n/v/d/c. Feels tired PT recommends rehab Objective Vitals Vital Signs Date Time Temp Pulse Resp B/P (MAP) Pulse Ox O2 Delivery O2 Flow Rate FiO2 10/03/17 12:22 98.2 70 18 136/63 (87) 96 10/03/17 11:57 80 10/03/17 08:02 98.2 72 20 112/60 (77) 96 10/03/17 07:26 72 10/03/17 05:17 72 10/03/17 05:14 71 18 97 10/03/17 04:40 98.0 72 18 109/54 (72) 90 10/03/17 00:04 77 10/02/17 23:30 98.5 74 18 112/64 (80) 94 10/02/17 20:07 86 10/02/17 20:00 98.0 68 18 106/58 (74) 94 102/62 (75) 108/56 (73) 10/02/17 18:31 105 I/O 10/02/17 10/02/17 10/02/17 10/03/17 10/03/17 10/03/17 06:59 14:59 22:59 06:59 14:59 22:59 Intake Total 475 ml 545 ml Balance 475 ml 545 ml Intake Oral 475 ml 545 ml # Voids 1 2 3 # Bowel Movements 0 Result Diagram: 10/02/17 0514 10/03/17 0917 Imaging Last Impressions Barium Swallow X-Ray 10/03/17 0000 Signed Impressions: Service Date/Time: Tuesday, October 03, 2017 09:41 - CONCLUSION: Huge Zenker' s diverticulum. 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 Mild atherosclerotic disease within the carotid bulbs bilaterally. There is mildly elevated peak systolic velocity measurements in the distal right internal carotid artery and in the mid and distal left internal carotid artery. Based strictly on velocity measurements, there is a suggestion of 50-69%% stenosis. However, visual assessment demonstrates no significant plaque or stenosis in these areas. If it would alter clinical management, could further evaluate with carotid artery CTA examination but it is felt unlikely that there is any significant stenosis. 2. There is antegrade flow within both vertebral arteries. Silverio Cleaning MD Maxillofacial CT 09/29/17 0000 Signed Impressions: Service Date/Time: Friday, September 29, 2017 20:06 - CONCLUSION: No acute disease. Jose David Crews Jr., MD Hip and Pelvis X-Ray 09/29/17 Signed Impressions: Service Date/Time: Friday, September 29, 2017 20:00 - CONCLUSION: No acute disease. Jose David Crews Jr., MD Head CT 09/29/17 Signed Impressions: Service Date/Time: Friday, September 29, 2017 20:06 - CONCLUSION: Normal examination. Jose David Crews Jr., MD Cervical Spine CT 09/29/17 0000 Signed Impressions: Service Date/Time: Friday, September 29, 2017 20:06 - CONCLUSION: 1. No acute abnormality. 2. Multilevel degenerative changes. 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 Jose David Crews Jr., MD Objective Remarks GENERAL: This is a well-nourished, well-developed elderly female patient, in no apparent distress. Sitting up in bed. Awake and alert. CARDIOVASCULAR: Regular rate and rhythm without murmurs, gallops, or rubs. RESPIRATORY: Clear to auscultation. Breath sounds equal bilaterally. No wheezes , rales, or rhonchi. GASTROINTESTINAL: Abdomen soft, non-tender, nondistended. No guarding. MUSCULOSKELETAL: Extremities without clubbing, cyanosis, or edema. No calf tenderness NEUROLOGICAL: Awake and alert. Able to move all extremities spontaneously. No focal neurologic findings appreciated. Motor and sensory grossly within normal limits. Normal speech. A/P Assessment and Plan Syncope History of seizure disorder Phenytoin toxicity Admit inpatient CT of the head unremarkable Fall precautions/seizure precautions Dilantin level 36.5. Hold phenytoin. Repeat Dilantin level in a.m. Continue on Depakote 125 mg by mouth twice a day Consult neurology, appreciate assistance 2-D echocardiogram EEG study Carotid Dopplers with 60 % occlusion however CTA doesn't show occlusion. CTA neck also significant for large Zenker diverticulum. Consult GI CT of cervical spine reveals some significant disc degeneration with osteophyte disc complex at C5 6 which may have contributed to the fall. Will defer to neurology for possible MRI study for further workup. Continuous cardiac monitoring Obtain orthostatic blood pressure measurements Hold all sedating medications Obtain TSH level, lipid profile and hemoglobin A1c PT recommends rehabilitation - she currently resides in assisted living facility Zenker diverticulum per CT neck CT neck also significant for large Zenker diverticulum. Consult GI, plan for barium swallowing study . Advance diet per ST and GI recommendations Hyponatremia Suspect due to poor oral intake Resolved status post IV fluid hydration Dementia Continue patient on Namzaric 1 cap po daily Dyslipidemia Continue patient on Lipitor 10 mg daily DVT prophylaxis - Lovenox sq Discharge Planning Discharge pending neurology clearance, GI clearance,, barium swallow eval reviewed per GI stable at this time, patient might need myotomy n the future DC to SNF when arrangements done Maddy Thomas MD Oct 03, 2017 16:38
[2017-10-03] MEDS: LATANOPROST 0.005% OPHT SOLN 2.5 ML BTL RIGHT EYE SCH (21:00)
[2017-10-03] MEDS: ATORVASTATIN 10 MG TAB PO SCH (21:43)
[2017-10-03] MEDS: clonazePAM 0.5 MG TAB PO PRN (23:25)
[2017-10-04] VITALS (8 sets, daily range): BP systolic 95–126; BP diastolic 51–55; PULSE 75–105; RESP 17–22; TEMP 97.2–98.2; O2SAT 92–95
[2017-10-04] MEDS: ASPIRIN EC 81 MG TABEC PO SCH (08:27)
[2017-10-04] MEDS: DIVALPROEX SODIUM SPRINKLES 125 MG CAP PO SCH ×2 (08:27→21:18)
[2017-10-04] MEDS: levETIRAcetam 250 MG TAB PO SCH ×2 (08:27→21:19)
[2017-10-04] MEDS: ACETAMINOPHEN 325 MG TAB PO PRN ×2 (08:27→21:19)
[2017-10-04] MEDS: ARIPiprazole 30 MG TAB PO SCH (08:27)
[2017-10-04] MEDS: FUROSEMIDE 40 MG TAB PO SCH (08:28)
[2017-10-04] MEDS: GABAPENTIN 300 MG CAP PO SCH ×3 (08:28→17:16)
[2017-10-04] MEDS: SODIUM CHLORIDE 0.9% FLUSH 10 ML FLUSH IV FLUSH SCH ×2 (08:28→21:18)
[2017-10-04] MEDS: POTASSIUM CHLORIDE 10 MEQ CONTROLLED RELEASE TAB PO SCH (08:28)
[2017-10-04] MEDS: ENOXAPARIN SODIUM 40 MG/0.4 ML SYRINGE SQ SCH (12:13)
--- NOTE | 2017-10-04 14:21 | HHI.PR ---
Subjective Remarks Pleasant elderly lady sitting on the edge of the bed reported diarrhea but no abdominal pain, she told me she has a history of colitis Discussed with the nurse she had a soft bowel movement, the patient think it's related to irritable bowel disease because she feels anxious Objective Vitals Vital Signs Date Time Temp Pulse Resp B/P (MAP) Pulse Ox O2 Delivery O2 Flow Rate FiO2 10/04/17 12:05 98.2 82 20 98/53 (68) 93 10/04/17 08:05 97.2 88 22 126/55 (78) 95 10/04/17 08:00 75 10/04/17 08:00 Room Air 10/04/17 04:00 82 10/04/17 04:00 97.5 78 17 106/55 (72) 94 10/04/17 00:00 Room Air 10/04/17 00:00 97.4 79 17 121/55 (77) 94 10/04/17 00:00 87 10/03/17 21:00 78 10/03/17 20:20 Room Air 10/03/17 20:00 97.4 84 17 112/58 (76) 96 10/03/17 17:28 97.7 75 20 122/57 (78) 94 10/03/17 17:00 Room Air I/O 10/03/17 10/03/17 10/03/17 10/04/17 10/04/17 10/04/17 07:00 15:00 23:00 07:00 15:00 23:00 Intake Total 200 ml Balance 200 ml Intake Oral 200 ml # Voids 3 1 8 # Bowel Movements 0 3 6 Result Diagram: 10/02/17 0514 10/03/17 0917 Objective Remarks GENERAL: This is a well-nourished, well-developed patient, in no apparent distress. SKIN: No rashes, warm and dry HEAD: Atraumatic. Normocephalic. EYES: Pupils equal round and reactive. Extraocular motions intact. No scleral icterus. ENT: Nose without bleeding, or drainage, Airway patent. NECK: Trachea midline. Supple CARDIOVASCULAR: Regular rate and rhythm without murmurs, gallops, or rubs. RESPIRATORY: Fair air entry bilaterally. No wheezes, rales, or rhonchi. GASTROINTESTINAL: Abdomen soft, non-tender, nondistended. Positive bowel sounds MUSCULOSKELETAL: Extremities without clubbing, cyanosis, or edema. Pedal pulses appreciated NEUROLOGICAL: Awake and alert. Moves all extremity. Normal speech.no focal neurological deficit A/P Assessment and Plan 10/04: Soft stool/diarrhea, check for C. difficile, awaiting GI for Zenker diverticulum which showed large on barium swallow. Syncope workup >>Neck CTA showed fibromuscular dysplasia no evidence of carotid bifurcation stenosis, carotid CT no abnormality, negative CT maxillofacial as well as hip CT, electroencephalogram showed diffuse slowing waves consistent with mild diffuse encephalopathy but no focal abnormality of seizure activity, 2 -D echo showed EF 60-65% with trays AR and TR Syncope History of seizure disorder Phenytoin toxicity CT of the head unremarkable Fall precautions/seizure precautions Dilantin level 36.5. Hold phenytoin. Repeat Dilantin level in a.m. Continue on Depakote 125 mg by mouth twice a day Consult neurology, appreciate assistance 2-D echocardiogram EEG study Carotid Dopplers with 60 % occlusion however CTA doesn't show occlusion. CTA neck also significant for large Zenker diverticulum. Consult GI CT of cervical spine reveals some significant disc degeneration with osteophyte disc complex at C5 6 which may have contributed to the fall. Will defer to neurology for possible MRI study for further workup. Continuous cardiac monitoring Obtain orthostatic blood pressure measurements Hold all sedating medications TSH level, lipid profile and hemoglobin A1c and vitamin B-12 all within normal limit PT recommends rehabilitation - she currently resides in assisted living facility Zenker diverticulum per CT neck CT neck also significant for large Zenker diverticulum. Consult GI, plan for barium swallowing study . Advance diet per ST and GI recommendations Hyponatremia Suspect due to poor oral intake Resolved status post IV fluid hydration Dementia Continue patient on Namzaric 1 cap po daily Dyslipidemia Continue patient on Lipitor 10 mg daily DVT prophylaxis - Lovenox sq Discharge Planning Discharge pending neurology clearance, GI clearance,, barium swallow eval reviewed per GI stable at this time, patient might need myotomy n the future DC to SNF when arrangements done Zoë Alamo MD Oct 04, 2017 14:21
[2017-10-04] MEDS: ATORVASTATIN 10 MG TAB PO SCH (21:18)
[2017-10-04] MEDS: clonazePAM 0.5 MG TAB PO PRN (21:18)
[2017-10-04] MEDS: LATANOPROST 0.005% OPHT SOLN 2.5 ML BTL RIGHT EYE SCH (21:23)
[2017-10-05] VITALS: BP 101/50; PULSE 76; PULSE 86; RESP 16; TEMP 98; O2SAT 98
[2017-10-05 04:00] VITALS: PULSE 72
[2017-10-05 07:03] VITALS: BP 106/55; PULSE 74; RESP 18; TEMP 98; O2SAT 97
[2017-10-05 08:00] VITALS: BP 105/53; PULSE 72; RESP 18; TEMP 97.5; O2SAT 96
[2017-10-05] MEDS: POTASSIUM CHLORIDE 10 MEQ CONTROLLED RELEASE TAB PO SCH (09:41)
[2017-10-05] MEDS: ARIPiprazole 30 MG TAB PO SCH (09:42)
[2017-10-05] MEDS: DIVALPROEX SODIUM SPRINKLES 125 MG CAP PO SCH (09:42)
[2017-10-05] MEDS: GABAPENTIN 300 MG CAP PO SCH ×2 (09:42→13:00)
[2017-10-05] MEDS: ASPIRIN EC 81 MG TABEC PO SCH (09:42)
[2017-10-05] MEDS: levETIRAcetam 250 MG TAB PO SCH (09:43)
[2017-10-05] MEDS: FUROSEMIDE 40 MG TAB PO SCH (09:43)
[2017-10-05] MEDS: SODIUM CHLORIDE 0.9% FLUSH 10 ML FLUSH IV FLUSH SCH (09:44)
[2017-10-05] MEDS ORDERED: LEVE250 PO (09:57)
[2017-10-05] MEDS: ENOXAPARIN SODIUM 40 MG/0.4 ML SYRINGE SQ SCH (12:00)
--- NOTE | 2017-10-06 20:55 | HHI.DS ---
Discharge Summary Admission Date Oct 02, 2017 at 12:14 Discharge Date: Oct 05, 2017 Admitting Diagnosis Phenytoin toxicity, ataxia (1) Zenkers diverticulum ICD Code: K22.5 - Diverticulum of esophagus, acquired (2) Syncope ICD Code: R55 - Syncope and collapse (3) Impaired activities of daily living ICD Code: R53.81 - Other malaise (4) Balance problem ICD Code: R26.89 - Other abnormalities of gait and mobility Procedures see below Brief History - From Admission History from patient, ER communication, and review of medical records. Patient is an elderly lady who is limited historian. She Stating that she has short-term memory loss and cannot remember anything because of dementia. For most of the review of systems, she answered no and only for dizziness, she states she may have had that. She then also stated that she may have had double vision. Per ER triage notes, patient has worsening dementia, worsening gait and continues to fall at the senior care. She was here at the emergency room on Thursday as well with a fall and complaining of back pain then. She is again sent to the hospital because of frequent falls. On further workup, patient was found to have Dilantin level of 35. Patient does report of history of seizures for which she is taking Dilantin. On review of medical records from senior care, patient was on different doses of Dilantin. CBC/BMP: 10/02/17 0514 10/03/17 0917 Significant Findings Laboratory Tests Test 10/04/17 05:59 10/05/17 06:50 PE at Discharge GENERAL: This is a well-nourished, well-developed patient, in no apparent distress. SKIN: No rashes, warm and dry HEAD: Atraumatic. Normocephalic. EYES: Pupils equal round and reactive. Extraocular motions intact. No scleral icterus. ENT: Nose without bleeding, or drainage, Airway patent. NECK: Trachea midline. Supple CARDIOVASCULAR: Regular rate and rhythm without murmurs, gallops, or rubs. RESPIRATORY: Fair air entry bilaterally. No wheezes, rales, or rhonchi. GASTROINTESTINAL: Abdomen soft, non-tender, nondistended. Positive bowel sounds MUSCULOSKELETAL: Extremities without clubbing, cyanosis, or edema. Pedal pulses appreciated NEUROLOGICAL: Awake and alert. Moves all extremity. Normal speech.no focal neurological deficit Hospital Course 76-year-old years old pleasant female admitted for syncope and GI complain found to be a Zenker diverticulum full syncope workup has been done including neurology consultation who stopped her phenytoin which was in toxicity level and replace it with Keppra. Patient also had GI consultation patient had a barium swallow, and EGD, speech therapist evaluated the patient recommended mechanical soft diet eventually GI. Patient to be discharged and follow-up as an outpatient. [id number] encounter performed with the patient on discharge day, as well as physical exam, summary of hospitalization course and postdischarge plan has been D/W the patient. D/W nurse D/W pillowcase sewer Discharge medications reviewed and printed and signed, post discharge follow up visit with PCP and other specialist as well as Brief hospital course and discharge summary has been placed. Pt Condition on Discharge: Fair Discharge Disposition: Discharge to SNF Discharge Time: > 30 minutes Discharge Instructions DIET: Follow Instructions for: Heart Healthy Diet Speech Therapy-Diet Recommends: Mechanical Soft Activities you can perform: See Additionl Instruction Other Activity Instructions: Per PT at rehabilitation Follow up Referrals: SNF/[facility]/ with [facility] New Medications: Walker with Front Wheels (Walker with Front Wheels) 1 Mis Mis EA .ROUTE DIRECTED, #1 0 Refills Levetiracetam (Keppra) 250 Mg Tab 250 MG PO Q12HR for seizure, #60 TAB Continued Medications: Acetaminophen (Acetaminophen) 325 Mg Capsule 650 PO Q4HR for Pain Management Aripiprazole (Aripiprazole) 30 Mg Tab 30 MG PO DAILY, #30 TAB [address] (Aspirin EC) 81 Mg Tabdr 81 MG PO DAILY, TAB 0 Refills Atorvastatin (Atorvastatin) 10 Mg Tab 10 MG PO HS for Cholesterol Management, #30 TAB 0 Refills Bisacodyl Supp (Biscolax Supp) 10 Mg Supp 10 MG RECTAL DAILY PRN for CONSTIPATION, SUPP 0 Refills Clonazepam (Klonopin) 0.5 Mg Tab 0.5 MG PO TID, #90 TAB 0 Refills Cyanocobalamin ER (B-12 Tr) 1,000 Mcg Tab 1000 MCG PO DAILY for Nutritional Supplement, #1 BOTTLE 0 Refills Desvenlafaxine ER 24 HR (Khedezla 24 HR) 50 Mg Tab 50 MG PO DAILY, TAB Divalproex DR (Depakote DR) 125 Mg Tabdr 125 MG PO BID for Control Seizures, #60 TAB 0 Refills Furosemide (Furosemide) 40 Mg Tab 40 MG PO DAILY, #30 TAB 0 Refills Gabapentin (Gabapentin) 300 Mg Cap 300 MG PO TID, #90 CAP 0 Refills Guaifenesin Liq (Guaifenesin Liq) 100 mg/5 ML Soln 100 MG PO Q4H PRN for COUGH, #1 BOTTLE 0 Refills Magnesium Hydroxide Liq (Milk of Magnesia Liq) 400 Mg/5 Ml Susp 30 ML PO DAILY PRN for INDIGESTION OR UPSET STOMACH, #1 BOTTLE 0 Refills Memantine-Donepezil (Namzaric) 28-10 Mg Cap 1 CAP PO HS for Alzheimer Dementia, #30 CAP 0 Refills Potassium Chloride ER (Potassium Chloride ER) 10 Meq Tab 10 MEQ PO DAILY for Electrolyte Replacement, #30 TAB 0 Refills Travoprost Opth Drops (Travatan Z Opth Drops) 0.004 % Soln 1 DROP RIGHT EYE HS for Glaucoma, #1 BOTTLE 0 Refills Zoë Alamo MD Oct 06, 2017 20:55
== END 2017-10-05 15:00 | DRG 312 ==
LOC: NEPC 18:30 → NEDA 22:56 → NEDH 09-30 02:56 → NEPHCDU 09-30 18:43 → OBSVTOIN 10-02 12:14 → N04A 10-03 17:28
PROVIDERS: ADMIT Hospitalist; ATTEND Hospitalist
DX: R55 Syncope and collapse (principal); E87.1 Hypo-osmolality and hyponatremia; G62.9 Polyneuropathy, unspecified; F03.90 Unspecified dementia, unspecified severity, without behavioral disturbance, psychotic disturbance, mood disturbance, and anxiety; K22.5 Diverticulum of esophagus, acquired; D75.89 Other specified diseases of blood and blood-forming organs; T42.0X5A Adverse effect of hydantoin derivatives, initial encounter; G40.909 Epilepsy, unspecified, not intractable, without status epilepticus; R29.6 Repeated falls; M25.78 Osteophyte, vertebrae; E78.5 Hyperlipidemia, unspecified; E78.00 Pure hypercholesterolemia, unspecified; R27.0 Ataxia, unspecified; H40.9 Unspecified glaucoma; M50.30 Other cervical disc degeneration, unspecified cervical region; K58.0 Irritable bowel syndrome with diarrhea; F32.9 Major depressive disorder, single episode, unspecified; F41.9 Anxiety disorder, unspecified
CPT/HCPCS: 70450; 70486; 70498; 72125; 73502; 74230; 80048; 80053; 80061; 80185; 80186; 81001; 82607; 83036; 83735; 84443; 85025; 93005; 93306; 93880; 95819; 96372; G0378; G8987-GP; G8988-GP; G8996-GN; G8997-GN; J1650; J7040; Q9967

== ENCOUNTER 2017-10-24 15:29 | Emergency (ER) | payer MEDICARE, OTHER ==
[~2017-10-24] VITALS: Ht 162.6 cm; Wt 55.0 kg
[~2017-10-24 15:29] MED LIST changes: +ACET325C PO; -ACET650T10 PO; +ARIP1TAB15 PO; +ASPI81TA23 PO; +ATOR10TA15 PO; +BISC10SU RECTAL; -CEPH500C3 PO; +CLON.5 PO; +CYAN100042 PO; -CYAN1000P IM; +DEPA125T PO; +DESV5TAB PO; -DILA100C PO; +DILA125S PO; +FEXO60TA36; +FURO40TA PO; -GABA300 PO; +GABA300C5 PO; +GUAI100S7 PO; -LASI20TA PO; +LEVE250 PO; -LORA-392 PO; +MEMA1CAP2 PO; +MILKSUS PO; -POTA10CA26 PO; +POTA10TA2 PO; -RISP.25 PO; -SERT50 PO; -SIMV20 PO; +TRAV0.00 RIGHT EYE; +WALKER WHEELS/F1 MIS; +[UNRECOGNIZED DRUG - CODE] RECTAL
[2017-10-24 15:44] VITALS: BP 112/58; PULSE 88; RESP 26; TEMP 98.8; O2SAT 93
[2017-10-24] MEDS ORDERED: SODIUM CHLOR 0.9% 1000 ML INJ 1,000 ML IV ONE (15:56)
[2017-10-24] MEDS ORDERED: SODIUM CHLORIDE 0.9% FLUSH 10 ML FLUSH IVF PRN (16:00)
[2017-10-24 16:05] VITALS: O2SAT 92
--- NOTE | 2017-10-24 16:09 | PD ---
HPI Chief Complaint: Seizure Time Seen by Provider: 15:48 Travel History International Travel<30 days: No Contact w/Intl Traveler<30days: No Traveled to known affect area: No History of Present Illness HPI The patient is a 76-year-old female who presents to the emergency department via EMS after a seizure. The patient currently resides at [facility] and is followed by her primary physician, Dr. Adryan Ritchie. The patient does have a history of seizures for which she takes Dilantin. According to EMS the patient had a seizure earlier today. Upon arrival the patient denies any headache, neck pain, chest pain, shortness breath, nausea, vomiting, or abdominal pain. She denies any trauma to the tongue and denies any urinary incontinence. The patient states she takes Dilantin for seizures, however, paperwork does reveal she recently was switched from Dilantin to Depakote. The patient is asymptomatic upon arrival. She does reside in a care home. PFSH Past Medical History Anxiety: Yes Depression: Yes High Cholesterol: Yes Dementia: Yes Diminished Hearing: No Seizures: Yes Menopausal: Yes Past Surgical History Surgical History: Unable to Obtain Social History Alcohol Use: No Tobacco Use: No Substance Use: No Allergies-Medications (Allergen,Severity, Reaction): Coded Allergies: No Known Allergies (Verified Allergy, Unknown, 09/29/17) Reported Meds & Prescriptions Reported Meds & Active Scripts Active Reported Keppra (Levetiracetam) 500 Mg Tab 500 Mg BID B-12 Tr (Cyanocobalamin) 1,000 Mcg Tab 1,000 Mcg PO DAILY Travatan Z Opth Drops (Travoprost) 0.004 % Soln 1 Drop RIGHT EYE HS Potassium Chloride ER (Potassium Chloride) 10 Meq Tab 10 Meq PO DAILY Namzaric (Memantine-Donepezil) 28-10 Mg Cap 1 Cap PO HS Milk of Magnesia Liq (Magnesium Hydroxide) 400 Mg/5 Ml Susp 30 Ml PO DAILY PRN Klonopin (Clonazepam) 0.5 Mg Tab 0.5 Mg PO TID Gabapentin 300 Mg Cap 300 Mg PO TID Furosemide 40 Mg Tab 40 Mg PO DAILY Depakote DR (Divalproex Sodium) 125 Mg Tabdr 125 Mg PO BID Biscolax Supp (Bisacodyl) 10 Mg Supp 10 Mg RECTAL DAILY PRN Atorvastatin (Atorvastatin Calcium) 10 Mg Tab 10 Mg PO HS Aspirin EC (Aspirin) 81 Mg Tabdr 81 Mg PO DAILY Aripiprazole 30 Mg Tab 15 Mg PO DAILY Acetaminophen 325 Mg Capsule 650 PO Q4HR Review of Systems Except as stated in HPI: all other systems reviewed are Neg General / Constitutional: No: Fever HENT: No: Headaches, Lightheadedness Cardiovascular: No: Chest Pain or Discomfort Respiratory: No: Shortness of Breath Gastrointestinal: No: Nausea, Vomiting, Abdominal Pain Musculoskeletal: No: Weakness Neurologic: Positive: Seizures, No: Weakness Physical Exam Narrative GENERAL: Awake, alert, pleasant 76-year-old female who appears her stated age and is in no acute respiratory distress. SKIN: Focused skin assessment warm/dry. HEAD: Atraumatic. Normocephalic. EYES: Pupils equal and round. 3 mm bilateral and reactive. EOMs are intact. ENT: No nasal bleeding or discharge. Mucous membranes pink and moist. NECK: Trachea midline. No JVD. CARDIOVASCULAR: Regular rate and rhythm. No murmur appreciated. RESPIRATORY: No accessory muscle use. Clear to auscultation. Breath sounds equal bilaterally. GASTROINTESTINAL: Abdomen soft, non-tender, nondistended. No rebound tenderness. MUSCULOSKELETAL: No obvious deformities. No clubbing. No cyanosis. No edema. NEUROLOGICAL: Awake and alert. No obvious cranial nerve deficits. Motor grossly within normal limits. Normal speech. Nonfocal. Patient is oriented to month and name, but not the micro paleontologist or year. PSYCHIATRIC: Appropriate mood and affect; insight and judgment normal. Data Data Last Documented VS Vital Signs Date Time Temp Pulse Resp B/P (MAP) Pulse Ox O2 Delivery O2 Flow Rate FiO2 10/24/17 16:05 (76) 92 Nasal Cannula 2.00 10/24/17 15:44 98.8 88 26 Orders Orders Complete Blood Count With Diff (10/24/17 15:56) Alcohol (Ethanol) (10/24/17 15:56) Phenytoin (Dilantin) (10/24/17 15:56) Electrocardiogram (10/24/17 ) Ct Brain W/O Iv Contrast(Rout) (10/24/17 ) Blood Glucose (10/24/17 15:56) Ecg Monitoring (10/24/17 15:56) Iv Access Insert/Monitor (10/24/17 15:56) Oximetry (10/24/17 15:56) Comprehensive Metabolic Panel (10/24/17 15:56) Sodium Chlor 0.9% 1000 Ml Inj (Ns 1000 M (10/24/17 15:56) Sodium Chloride 0.9% Flush (Ns Flush) (10/24/17 16:00) Ua Includes Microscopic (10/24/17 15:56) Lactic Acid (10/24/17 15:56) Valproic Acid (Depakene) (10/24/17 16:09) Ed Discharge Order (10/24/17 18:26) Labs Laboratory Tests Test 10/24/17 16:00 10/24/17 16:15 10/24/17 17:35 White Blood Count 13.9 TH/MM3 Red Blood Count 3.92 MIL/MM3 Hemoglobin 13.7 GM/DL Hematocrit 39.3 % Mean Corpuscular Volume 100.3 FL Mean Corpuscular Hemoglobin 35.0 PG Mean Corpuscular Hemoglobin Concent 34.9 % Red Cell Distribution Width 13.0 % Platelet Count 140 TH/MM3 Mean Platelet Volume 7.4 FL Neutrophils (%) (Auto) 89.0 % Lymphocytes (%) (Auto) 6.7 % Monocytes (%) (Auto) 3.3 % Eosinophils (%) (Auto) 0.8 % Basophils (%) (Auto) 0.2 % Neutrophils # (Auto) 12.4 TH/MM3 Lymphocytes # (Auto) 0.9 TH/MM3 Monocytes # (Auto) 0.5 TH/MM3 Eosinophils # (Auto) 0.1 TH/MM3 Basophils # (Auto) 0.0 TH/MM3 CBC Comment DIFF FINAL Differential Comment Blood Urea Nitrogen 8 MG/DL Creatinine 0.61 MG/DL Random Glucose 115 MG/DL Total Protein 8.1 GM/DL Albumin 3.7 GM/DL Calcium Level 8.5 MG/DL Alkaline Phosphatase 131 U/L Aspartate Amino Transf (AST/SGOT) 50 U/L Alanine Aminotransferase (ALT/SGPT) 27 U/L Total Bilirubin 0.4 MG/DL Sodium Level 135 MEQ/L Potassium Level 4.1 MEQ/L Chloride Level 99 MEQ/L Carbon Dioxide Level 29.5 MEQ/L Anion Gap 7 MEQ/L Estimat Glomerular Filtration Rate 95 ML/MIN Phenytoin (Dilantin) Level 0.5 MCG/ML Ethyl Alcohol Level LESS THAN 3 MG/DL Lactic Acid Level 1.4 mmol/L Urine Color LIGHT-YELLOW Urine Turbidity CLEAR Urine pH 7.0 Urine Specific Avery 1.006 Urine Protein NEG mg/dL Urine Glucose (UA) NEG mg/dL Urine Ketones NEG mg/dL Urine Occult Blood NEG Urine Nitrite NEG Urine Bilirubin NEG Urine Urobilinogen LESS THAN 2.0 MG/DL Urine Leukocyte Esterase NEG Urine RBC 1 /hpf Urine WBC 1 /hpf MDM Medical Decision Making Medical Screen Exam Complete: Yes Emergency Medical Condition: Yes Medical Record Reviewed: Yes Interpretation(s) EKG reveals normal sinus rhythm with a rate in 94. Low QRS voltage precordial leads. CT of the brain reveals normal examination for patient of this age. No significant change has occurred. Laboratory Tests Test 10/24/17 16:00 10/24/17 16:15 10/24/17 17:35 White Blood Count 13.9 TH/MM3 Red Blood Count 3.92 MIL/MM3 Hemoglobin 13.7 GM/DL Hematocrit 39.3 % Mean Corpuscular Volume 100.3 FL Mean Corpuscular Hemoglobin 35.0 PG Mean Corpuscular Hemoglobin Concent 34.9 % Red Cell Distribution Width 13.0 % Platelet Count 140 TH/MM3 Mean Platelet Volume 7.4 FL Neutrophils (%) (Auto) 89.0 % Lymphocytes (%) (Auto) 6.7 % Monocytes (%) (Auto) 3.3 % Eosinophils (%) (Auto) 0.8 % Basophils (%) (Auto) 0.2 % Neutrophils # (Auto) 12.4 TH/MM3 Lymphocytes # (Auto) 0.9 TH/MM3 Monocytes # (Auto) 0.5 TH/MM3 Eosinophils # (Auto) 0.1 TH/MM3 Basophils # (Auto) 0.0 TH/MM3 CBC Comment DIFF FINAL Differential Comment Blood Urea Nitrogen 8 MG/DL Creatinine 0.61 MG/DL Random Glucose 115 MG/DL Total Protein 8.1 GM/DL Albumin 3.7 GM/DL Calcium Level 8.5 MG/DL Alkaline Phosphatase 131 U/L Aspartate Amino Transf (AST/SGOT) 50 U/L Alanine Aminotransferase (ALT/SGPT) 27 U/L Total Bilirubin 0.4 MG/DL Sodium Level 135 MEQ/L Potassium Level 4.1 MEQ/L Chloride Level 99 MEQ/L Carbon Dioxide Level 29.5 MEQ/L Anion Gap 7 MEQ/L Estimat Glomerular Filtration Rate 95 ML/MIN Phenytoin (Dilantin) Level 0.5 MCG/ML Ethyl Alcohol Level LESS THAN 3 MG/DL Lactic Acid Level 1.4 mmol/L Urine Color LIGHT-YELLOW Urine Turbidity CLEAR Urine pH 7.0 Urine Specific Avery 1.006 Urine Protein NEG mg/dL Urine Glucose (UA) NEG mg/dL Urine Ketones NEG mg/dL Urine Occult Blood NEG Urine Nitrite NEG Urine Bilirubin NEG Urine Urobilinogen LESS THAN 2.0 MG/DL Urine Leukocyte Esterase NEG Urine RBC 1 /hpf Urine WBC 1 /hpf Differential Diagnosis Differential diagnosis includes breakthrough seizure, subtherapeutic Depakote level, hyponatremia, hypocalcemia, subdural hemorrhage, subarachnoid hemorrhage , ETA, noncompliance, seizure disorder. Narrative Course IV was established, labs are drawn and sent, and the patient was placed on cardiac telemetry monitoring and continuous pulse oximetry monitoring. EKG was ordered and interpreted. CT of the brain was obtained. Depakote level and Dilantin level were sent to lab. Dilantin level is less than 0.5, the patient has been switched from Dilantin to Depakote. CT the brain reveals no acute changes. Sodium level is unremarkable. UA is negative. The patient is stable for transfer back to the care home, may need titration for Depakote levels at the care home. Diagnosis Primary Impression: Seizure disorder Patient Instructions: General Instructions Additional Instructions: Please provide the patient a copy of her CT results and lab results at discharge for transfer back to the care home. Follow-up with your primary physician and/or neurologist. Transfer back to care home. Med/Other Pt SpecificInfo: No Change to Meds Disposition: 03 DISCHARGE TO SNF (transfer back to care home) Condition: Stable Casper Boone MD Oct 24, 2017 16:09
[2017-10-24 16:32] LABS: AUTOMATED NEUTROPHIL # 12.4 TH/MM3 (1.8-7.7); BASOPHIL % 0.2 % (0.0-2.0); EOSINOPHIL # 0.1 TH/MM3 (0-0.4); EOSINOPHIL % 0.8 % (0.0-4.0); HEMATOCRIT 39.3 % (35.0-46.0); HEMOGLOBIN 13.7 GM/DL (11.6-15.3); LYMPH % 6.7 % (9.0-44.0); LYMPHOCYTE # 0.9 TH/MM3 (1.0-4.8); MEAN CELL VOLUME 100.3 FL (80.0-100.0); MEAN CORPUSCULAR HGB CONC 34.9 % (32.0-36.0); MEAN PLATELET VOLUME 7.4 FL (7.0-11.0); MONO % 3.3 % (0.0-8.0); MONOCYTE # 0.5 TH/MM3 (0-0.9); PLATELET COUNT 140 TH/MM3 (150-450); RED BLOOD COUNT 3.92 MIL/MM3 (4.00-5.30); WHITE BLOOD COUNT 13.9 TH/MM3 (4.0-11.0)
[2017-10-24 16:52] LABS: ALBUMIN 3.7 GM/DL (3.4-5.0); ALT (GPT) 27 U/L (10-53); AST (GOT) 50 U/L (15-37); BICARBONATE 29.5 MEQ/L (21.0-32.0); BLOOD UREA NITROGEN 8 MG/DL (7-18); CALCIUM 8.5 MG/DL (8.5-10.1); CHLORIDE 99 MEQ/L (98-107); CREATININE 0.61 MG/DL (0.50-1.00); GLOMERULAR FILTRATION RATE 95 ML/MIN (>89); GLUCOSE,RANDOM 115 MG/DL (74-106); SODIUM (NA) 135 MEQ/L (136-145)
[2017-10-24 16:54] LABS: ALKALINE PHOSPHATASE 131 U/L (45-117); PHENYTOIN (DILANTIN) 0.5 MCG/ML (10.0-20.0); TOTAL BILIRUBIN ADULT 0.4 MG/DL (0.2-1.0); TOTAL PROTEIN 8.1 GM/DL (6.4-8.2)
[2017-10-24 18:19] LABS: BILIRUBIN, URINE NEG (NEG); BLOOD, URINE NEG (NEG); GLUCOSE,URINE NEG (NEG); KETONE, URINE NEG (NEG); NITRITE,URINE NEG (NEG); URINE COLOR LIGHT-YELLOW (YELLW/STRAW); URINE LEUKOCYTE ESTERASE NEG (NEG)
[2017-10-24] MEDS ORDERED: LEVE500 (18:23)
--- NOTE | 2017-10-24 18:23 | RADRPT ---
EXAM DATE/TIME: 10/24/2017 18:15 [facility] COMPARISON: CT BRAIN W/O CONTRAST, September 29, 2017, 20:06. INDICATIONS : Altered mental status. RADIATION DOSE: 33.55 CTDIvol (mGy) MEDICAL HISTORY : Cerebrovascular disease. Dementia. Seizures.Cardiac, congestive heart failure SURGICAL HISTORY : None. ENCOUNTER: Initial ACUITY: 1 day PAIN SCALE: Non-responsive LOCATION: cranial TECHNIQUE: Multiple contiguous axial images were obtained of the head. Using automated exposure control and adj ustment of the mA and/or kV according to patient size, radiation dose was kept as low as reasonably a chievable to obtain optimal diagnostic quality images. DICOM format image data is available electro nically for review and comparison. FINDINGS: CEREBRUM: The ventricles are normal for age. No evidence of midline shift, mass lesion, hemorrhage or acute in farction. No extra-axial fluid collections are seen. POSTERIOR FOSSA: The cerebellum and brainstem are intact. The 4th ventricle is midline. The cerebellopontine angle i s unremarkable. EXTRACRANIAL: The visualized portion of the orbits is intact. SKULL: The calvaria is intact. No evidence of skull fracture. CONCLUSION: Normal examination for a patient of this age. No significant change has occurred. Donnie Rollins MD on October 24, 2017 at 18:19 Board Certified Radiologist. This report was verified electronically.
--- NOTE | 2017-10-25 17:25 | EKG ---
Date Performed: 10/24/2017 Time Performed: 15:47:31 PTAGE: 76 years EKG: Sinus rhythm LOW QRS VOLTAGE IN PRECORDIAL LEADS BORDERLINE ECG INTERPRETATION BASED ON A DEFAULT AGE OF 40 YEARS Since the prior tracing, there has been no significant change DOCTOR: Yonny Dahl Interpretating Date/Time 10/25/2017 17:23:30
== END 2017-10-24 21:40 ==
LOC: NEPE 15:29
DX: G40.909 Epilepsy, unspecified, not intractable, without status epilepticus (principal); R94.31 Abnormal electrocardiogram [ECG] [EKG]; F03.90 Unspecified dementia, unspecified severity, without behavioral disturbance, psychotic disturbance, mood disturbance, and anxiety
CPT/HCPCS: 70450; 80053; 80164; 80185; 80307; 81001; 83605; 85025; 93005; 99285; J7030

== ENCOUNTER 2017-11-17 11:05 | Emergency (ER) | payer MEDICARE, OTHER ==
[~2017-11-17 11:05] MED LIST changes: -DESV5TAB PO; -DILA125S PO; -FEXO60TA36; -GUAI100S7 PO; -LEVE250 PO; +LEVE500; -WALKER WHEELS/F1 MIS; -[UNRECOGNIZED DRUG - CODE] RECTAL
[2017-11-17 11:12] VITALS: BP 117/58; PULSE 112; RESP 18; TEMP 98; O2SAT 99
[2017-11-17] MEDS ORDERED: ACETAMINOPHEN 500 MG CPLT PO ONE (11:45)
[2017-11-17] MEDS ORDERED: TETANUS/DIPHTHERIA TOXOID ADULT 0.5 ML VIAL IM ONE (11:45)
--- NOTE | 2017-11-17 11:55 | PD ---
HPI Chief Complaint: Fall Time Seen by Provider: 11:36 Travel History International Travel<30 days: No Contact w/Intl Traveler<30days: No Traveled to known affect area: No History of Present Illness HPI 77 YO F with PMH of dementia presents to the ED via EMS from [facility] after fall. On exam the patient is alert. She is oriented to self only. She states that she has 5/10 stinging pain in the back of the head. She is unsure what events led to her fall today. She denies dizziness, vision changes, chest pain , palpitations, shortness of breath, abdominal pain, nausea, vomiting. Paperwork from the facility does not state whether the fall was witnessed or if the patient lost consciousness. I attempted to call the number provided and no one answered. Per record review the patient takes 81 mg aspirin daily. PFSH Past Medical History Anxiety: Yes Depression: Yes High Cholesterol: Yes Dementia: Yes Diminished Hearing: No Seizures: Yes ?: Not Menopausal: Yes Social History Alcohol Use: No Tobacco Use: No Substance Use: No Allergies-Medications (Allergen,Severity, Reaction): Coded Allergies: No Known Allergies (Verified Allergy, Unknown, 11/17/17) Reported Meds & Prescriptions Reported Meds & Active Scripts Active Reported Depakote DR (Divalproex Sodium) 125 Mg Tabdr 125 Mg PO TID Aripiprazole 15 Mg Tab 15 Mg PO HS Keppra (Levetiracetam) 500 Mg Tab 500 Mg BID B-12 Tr (Cyanocobalamin) 1,000 Mcg Tab 1,000 Mcg PO DAILY Travatan Z Opth Drops (Travoprost) 0.004 % Soln 1 Drop RIGHT EYE HS Potassium Chloride ER (Potassium Chloride) 10 Meq Tab 10 Meq PO DAILY Namzaric (Memantine-Donepezil) 28-10 Mg Cap 1 Cap PO HS Milk of Magnesia Liq (Magnesium Hydroxide) 400 Mg/5 Ml Susp 30 Ml PO DAILY PRN Klonopin (Clonazepam) 0.5 Mg Tab 0.5 Mg PO TID Gabapentin 300 Mg Cap 300 Mg PO TID Furosemide 40 Mg Tab 40 Mg PO DAILY Biscolax Supp (Bisacodyl) 10 Mg Supp 10 Mg RECTAL DAILY PRN Atorvastatin (Atorvastatin Calcium) 10 Mg Tab 10 Mg PO HS Aspirin EC (Aspirin) 81 Mg Tabdr 81 Mg PO DAILY Aripiprazole 30 Mg Tab 15 Mg PO DAILY Acetaminophen 325 Mg Capsule 650 PO Q4HR [place]hedezla 24 HR (Desvenlafaxine Succinate) 50 Mg Tab 50 Mg PO DAILY Review of Systems Except as stated in HPI: all other systems reviewed are Neg Physical Exam Narrative GENERAL: Well-nourished, well-developed pleasantly demented white female in no acute distress. SKIN: Focused skin assessment warm/dry. Subcm scalp abrasion of the posterior scalp. No active bleeding. HEAD: Normocephalic. EYES: No scleral icterus. No injection or drainage. NECK: Supple, trachea midline. No JVD or lymphadenopathy. CARDIOVASCULAR: Regular rate and rhythm without murmurs, gallops, or rubs. RESPIRATORY: Breath sounds clear and equal bilaterally. No accessory muscle use. GASTROINTESTINAL: Abdomen soft, non-tender, nondistended. Active bowel sounds. MUSCULOSKELETAL: No cyanosis, or edema. Moves extremities spontaneously. NEUROLOGICAL: Awake and alert. Cranial nerves II through XII intact. Motor and sensory grossly within normal limits. Five out of 5 muscle strength in all muscle groups. Normal speech. BACK: Nontender without obvious deformity. No CVA tenderness. Data Data Last Documented VS Vital Signs Date Time Temp Pulse Resp B/P (MAP) Pulse Ox O2 Delivery O2 Flow Rate FiO2 11/17/17 15:46 98 16 122/83 (96) 99 Room Air 11/17/17 11:[address] Brain W/O Iv Contrast(Rout) (11/17/17 ) Tetanus/Diphtheria Tox Adult (Tetanus/Di (11/17/17 11:45) Acetaminophen (Tylenol) (11/17/17 11:45) Ed Discharge Order (11/17/17 14:08) MDM Medical Decision Making Medical Screen Exam Complete: Yes Emergency Medical Condition: Yes Differential Diagnosis Scalp laceration versus skull fracture versus ICH versus need for tetanus immunization versus other Narrative Course 77 YO F with PMH of dementia presents to the ED via EMS from [facility] after fall. On exam the patient is alert. She is oriented to self only. She states that she has 5/10 stinging pain in the back of the head. She is unsure what events led to her fall today. She denies dizziness, vision changes, chest pain , palpitations, shortness of breath, abdominal pain, nausea, vomiting. Paperwork from the facility does not state whether the fall was witnessed or if the patient lost consciousness. I attempted to call the number provided and no one answered. Per record review the patient takes 81 mg aspirin daily. The nurse was able to speak with a client service representative at the custodial. Apparently the patient was at her closet today and had an unwitnessed fall. Unknown loss of consciousness. Vitals reviewed. On exam this is a pleasantly demented white female in no acute distress. There is a contusion and a subcentimeter abrasion on the posterior aspect of the scalp without active bleeding but the exam is otherwise unremarkable. Patient's tetanus immunization was updated. She was administered [address] by mouth. [address] of the brain reveals no acute disease per radiology read. This is scalp abrasion and contusion. Patient discharged to her [facility]. Diagnosis Primary Impression: Fall from standing Qualified Codes: W19.XXXA - Unspecified fall, initial encounter Additional Impressions: Scalp abrasion Qualified Codes: S00.01XA - Abrasion of scalp, initial encounter Scalp contusion Qualified Codes: S00.03XA - Contusion of scalp, initial encounter Referrals: Primary Care Physician Patient Instructions: Fall Prevention for Older Adults (ED), General Instructions, Scalp Contusion in Adults (ED) Additional Instructions: Return to normal, gentle activities as tolerated. Follow with her primary care provider. Return to the ED for any urgent or emergent medical condition. Disposition: 03 DISCHARGE TO SNF Condition: Stable Cherry Gan Nov 17, 2017 11:55
--- NOTE | 2017-11-17 12:29 | RADRPT ---
EXAM DATE/TIME: 11/17/2017 11:54 [facility] COMPARISON: CT BRAIN W/O CONTRAST, October 24, 2017, 18:15. INDICATIONS : Trauma. Fall. Posterior head pain and laceration. RADIATION DOSE: 34.04 CTDIvol (mGy) MEDICAL HISTORY : Dementia. Seizures. SURGICAL HISTORY : None. ENCOUNTER: Initial ACUITY: 1 day PAIN SCALE: 5/10 LOCATION: occipital TECHNIQUE: Multiple contiguous axial images were obtained of the head. Using automated exposure control and adj ustment of the mA and/or kV according to patient size, radiation dose was kept as low as reasonably a chievable to obtain optimal diagnostic quality images. DICOM format image data is available electro nically for review and comparison. FINDINGS: CEREBRUM: The ventricles are normal for age. No evidence of midline shift, mass lesion, hemorrhage or acute in farction. No extra-axial fluid collections are seen. POSTERIOR FOSSA: The cerebellum and brainstem are intact. The 4th ventricle is midline. The cerebellopontine angle i s unremarkable. EXTRACRANIAL: The visualized portion of the orbits is intact. SKULL: The calvaria is intact. No evidence of skull fracture. CONCLUSION: No acute disease. Jose David Crews Jr., MD on November 17, 2017 at 12:06 Board Certified Radiologist. This report was verified electronically.
[2017-11-17] MEDS ORDERED: DEPA125T PO (13:38)
[2017-11-17] MEDS ORDERED: VALP250C PO (13:38)
[2017-11-17] MEDS ORDERED: DESV5TAB PO (13:38)
[2017-11-17] MEDS ORDERED: LOPE2CAP PO (13:38)
[2017-11-17] MEDS ORDERED: ARIP1TAB13 PO (13:38)
[2017-11-17 15:46] VITALS: BP 122/83; PULSE 98; RESP 16; O2SAT 99
== END 2017-11-17 22:23 ==
LOC: NEDAMB 11:05
DX: S00.03XA Contusion of scalp, initial encounter (principal); S00.01XA Abrasion of scalp, initial encounter; E78.00 Pure hypercholesterolemia, unspecified; F03.90 Unspecified dementia, unspecified severity, without behavioral disturbance, psychotic disturbance, mood disturbance, and anxiety; W19.XXXA Unspecified fall, initial encounter; Y92.099 Unspecified place in other non-institutional residence as the place of occurrence of the external cause; Z23 Encounter for immunization
CPT/HCPCS: 70450; 90471; 90714

== ENCOUNTER 2017-11-23 10:47 | Emergency (ER) | payer MEDICARE, OTHER ==
[~2017-11-23 10:47] MED LIST changes: +ARIP1TAB13 PO; +DESV5TAB PO; +LOPE2CAP PO; +VALP250C PO
[2017-11-23 10:54] VITALS: BP 151/93; PULSE 83; RESP 38; TEMP 99.7; O2SAT 87
[2017-11-23] MEDS ORDERED: SODIUM CHLORIDE 0.9% FLUSH 10 ML FLUSH IVF PRN (11:00)
[2017-11-23] MEDS ORDERED: FUROSEMIDE 40 MG/4 ML VIAL IVP ONE (11:00)
--- NOTE | 2017-11-23 11:10 | PD ---
HPI Chief Complaint: Respiratory Distress Time Seen by Provider: 10:52 Travel History International Travel<30 days: No Contact w/Intl Traveler<30days: No Traveled to known affect area: No History of Present Illness HPI The patient is a 77-year-old female who presents to the emergency department via EMS from the [place] [facility] for shortness of breath. The patient was recently in the hospital 2 weeks ago after a fall. The patient was transferred back to the [place] [facility], was noted to be hypoxic this morning. The patient's oxygen saturation level on room air was in the mid 80s, she was placed on oxygen via nasal cannula which brought her oxygen level up to 90%. When EMS arrived they placed the patient on a nonrebreather, her oxygen saturation came up into the low 90s. They tried to place the patient on BiPAP, however, they state the patient did not tolerate the BiPAP. According to EMS the patient does not have a DNR. The patient does have a history of dementia, upon arrival is able to answer some questions but is a poor historian. She is not alert and oriented to person and place, unable to give me DNR instructions. She does complain of shortness of breath and chest tightness. She denies any abdominal pain. PFSH Past Medical History Anxiety: Yes Depression: Yes High Cholesterol: Yes Dementia: Yes Diminished Hearing: No Seizures: Yes Menopausal: Yes Social History Alcohol Use: No Tobacco Use: No Substance Use: No Allergies-Medications (Allergen,Severity, Reaction): Coded Allergies: No Known Allergies (Verified Allergy, Unknown, 11/17/17) Reported Meds & Prescriptions Reported Meds & Active Scripts Active Reported Tylenol (Acetaminophen) 325 Mg Tab 650 Mg PO Q4H PRN Vitamin B-12 (Cyanocobalamin) 1,000 Mcg Tab 1,000 Mcg PO DAILY Aripiprazole 5 Mg Tab 5 Mg PO BID Loperamide (Loperamide HCl) 2 Mg Cap 2 Mg PO Q6HR PRN Khedezla 24 HR (Desvenlafaxine Succinate) 50 Mg Tab 50 Mg PO DAILY Depakote DR (Divalproex Sodium) 125 Mg Tabdr 125 Mg PO TID Keppra (Levetiracetam) 500 Mg Tab 500 Mg BID Travatan Z Opth Drops (Travoprost) 0.004 % Soln 1 Drop RIGHT EYE HS Potassium Chloride ER (Potassium Chloride) 10 Meq Tab 10 Meq PO DAILY Namzaric (Memantine-Donepezil) 28-10 Mg Cap 1 Cap PO HS Milk of Magnesia Liq (Magnesium Hydroxide) 400 Mg/5 Ml Susp 30 Ml PO DAILY PRN Klonopin (Clonazepam) 0.5 Mg Tab 0.5 Mg PO TID Gabapentin 300 Mg Cap 300 Mg PO TID Furosemide 40 Mg Tab 40 Mg PO DAILY Biscolax Supp (Bisacodyl) 10 Mg Supp 10 Mg RECTAL DAILY PRN Atorvastatin (Atorvastatin Calcium) 10 Mg Tab 10 Mg PO HS Aspirin EC (Aspirin) 81 Mg Tabdr 81 Mg PO DAILY Review of Systems ROS Limitations: Poor Historian Except as stated in HPI: all other systems reviewed are Neg General / Constitutional: No: Fever (No fever perEMS) Cardiovascular: Positive: Chest Pain or Discomfort (Chest tightness per patient ) Respiratory: Positive: Shortness of Breath Gastrointestinal: No: Nausea, Vomiting, Abdominal Pain Neurologic: Positive: Other (History of dementia) Physical Exam Narrative GENERAL: Awake, slightly lethargic 77-year-old female appears her stated age and is in moderate respiratory distress. Nonverbal, will shake her head yes or no. SKIN: Focused skin assessment warm/dry. HEAD: Atraumatic. Normocephalic. EYES: No injection or drainage. ENT: Dry mucous membranes. NECK: Trachea midline. No JVD. CARDIOVASCULAR: Regular, tachycardic with a heart rate in the 120s. RESPIRATORY: Tachypnea with a respiratory rate of 32. Diffuse rhonchi. GASTROINTESTINAL: Abdomen soft, non-tender, nondistended. No rebound tenderness. MUSCULOSKELETAL: No obvious deformities. No clubbing. No cyanosis. No edema. NEUROLOGICAL: Awake, slightly lethargic. Moves all 4 extremities. Does not answer questions with yes or no, but will shake her head yes and no. Resting left upper extremity tremor. PSYCHIATRIC: Slightly anxious. Data Data Last Documented VS Vital Signs Date Time Temp Pulse Resp B/P (MAP) Pulse Ox O2 Delivery O2 Flow Rate FiO2 11/23/17 13:15 106 22 206/91 (129) 93 Non-Rebreather 15.00 11/23/17 10:54 99.7 Orders Orders Complete Blood Count With Diff (11/23/17 10:59) Comprehensive Metabolic Panel (11/23/17 10:59) B-Type Natriuretic Peptide (11/23/17 10:59) Act Partial Throm Time (Ptt) (11/23/17 10:59) Prothrombin Time / Inr (Pt) (11/23/17 10:59) Magnesium (Mg) (11/23/17 10:59) Ckmb (Isoenzyme) Profile (11/23/17 10:59) Troponin I (11/23/17 10:59) Influenzae A/B Antigen (11/23/17 10:59) Blood Culture (11/23/17 10:59) Iv Access Insert/Monitor (11/23/17 10:59) Electrocardiogram (11/23/17 10:59) Ecg Monitoring (11/23/17 10:59) Oximetry (11/23/17 10:59) Oxygen Administration (11/23/17 10:59) Chest, Single Ap (11/23/17 10:59) Sodium Chloride 0.9% Flush (Ns Flush) (11/23/17 11:00) Furosemide Inj (Lasix Inj) (11/23/17 11:00) Resp Bipap / Cpap Non Invas Vt (11/23/17 10:59) Lactic Acid (11/23/17 10:59) Ct Pulmonary Angiogram (11/23/17 ) CKMB (11/23/17 11:00) CKMB% (11/23/17 11:00) Iohexol 350 Inj (Omnipaque 350 Inj) (11/23/17 13:30) Labs Laboratory Tests Test 11/23/17 11:00 11/23/17 11:30 White Blood Count 15.0 TH/MM3 Red Blood Count 4.19 MIL/MM3 Hemoglobin 14.5 GM/DL Hematocrit 41.1 % Mean Corpuscular Volume 98.2 FL Mean Corpuscular Hemoglobin 34.6 PG Mean Corpuscular Hemoglobin Concent 35.2 % Red Cell Distribution Width 12.7 % Platelet Count 152 TH/MM3 Mean Platelet Volume 7.8 FL Neutrophils (%) (Auto) 68.1 % Lymphocytes (%) (Auto) 22.5 % Monocytes (%) (Auto) 9.0 % Eosinophils (%) (Auto) 0.2 % Basophils (%) (Auto) 0.2 % Neutrophils # (Auto) 10.2 TH/MM3 Lymphocytes # (Auto) 3.4 TH/MM3 Monocytes # (Auto) 1.4 TH/MM3 Eosinophils # (Auto) 0.0 TH/MM3 Basophils # (Auto) 0.0 TH/MM3 CBC Comment DIFF FINAL Differential Comment Prothrombin Time 11.0 SEC Prothromb Time International Ratio 1.1 RATIO Activated Partial Thromboplast Time 25.9 SEC Blood Urea Nitrogen 5 MG/DL Creatinine 0.56 MG/DL Random Glucose 154 MG/DL Total Protein 8.1 GM/DL Albumin 3.6 GM/DL Calcium Level 8.9 MG/DL Magnesium Level 2.0 MG/DL Alkaline Phosphatase 110 U/L Aspartate Amino Transf (AST/SGOT) 48 U/L Alanine Aminotransferase (ALT/SGPT) 28 U/L Total Bilirubin 0.5 MG/DL Sodium Level 131 MEQ/L Potassium Level 3.6 MEQ/L Chloride Level 91 MEQ/L Carbon Dioxide Level 32.4 MEQ/L Anion Gap 8 MEQ/L Estimat Glomerular Filtration Rate 104 ML/MIN Total Creatine Kinase 452 U/L Creatine Kinase MB 8.0 NG/ML Creatine Kinase MB % 1.8 % Troponin I 0.02 NG/ML B-Type Natriuretic Peptide 207 PG/ML Lactic Acid Level 2.2 mmol/L [facility] Medical Decision Making Medical Screen Exam Complete: Yes Emergency Medical Condition: Yes Medical Record Reviewed: Yes Interpretation(s) EKG reveals sinus tachycardia with PVC. Wavy baseline. Laboratory Tests Test 11/23/17 11:00 11/23/17 11:30 White Blood Count 15.0 TH/MM3 Red Blood Count 4.19 MIL/MM3 Hemoglobin 14.5 GM/DL Hematocrit 41.1 % Mean Corpuscular Volume 98.2 FL Mean Corpuscular Hemoglobin 34.6 PG Mean Corpuscular Hemoglobin Concent 35.2 % Red Cell Distribution Width 12.7 % Platelet Count 152 TH/MM3 Mean Platelet Volume 7.8 FL Neutrophils (%) (Auto) 68.1 % Lymphocytes (%) (Auto) 22.5 % Monocytes (%) (Auto) 9.0 % Eosinophils (%) (Auto) 0.2 % Basophils (%) (Auto) 0.2 % Neutrophils # (Auto) 10.2 TH/MM3 Lymphocytes # (Auto) 3.4 TH/MM3 Monocytes # (Auto) 1.4 TH/MM3 Eosinophils # (Auto) 0.0 TH/MM3 Basophils # (Auto) 0.0 TH/MM3 CBC Comment DIFF FINAL Differential Comment Prothrombin Time 11.0 SEC Prothromb Time International Ratio 1.1 RATIO Activated Partial Thromboplast Time 25.9 SEC Blood Urea Nitrogen 5 MG/DL Creatinine 0.56 MG/DL Random Glucose 154 MG/DL Total Protein 8.1 GM/DL Albumin 3.6 GM/DL Calcium Level 8.9 MG/DL Magnesium Level 2.0 MG/DL Alkaline Phosphatase 110 U/L Aspartate Amino Transf (AST/SGOT) 48 U/L Alanine Aminotransferase (ALT/SGPT) 28 U/L Total Bilirubin 0.5 MG/DL Sodium Level 131 MEQ/L Potassium Level 3.6 MEQ/L Chloride Level 91 MEQ/L Carbon Dioxide Level 32.4 MEQ/L Anion Gap 8 MEQ/L Estimat Glomerular Filtration Rate 104 ML/MIN Total Creatine Kinase 452 U/L Creatine Kinase MB 8.0 NG/ML Creatine Kinase MB % 1.8 % Troponin I 0.02 NG/ML B-Type Natriuretic Peptide 207 PG/ML Lactic Acid Level 2.2 mmol/L Differential Diagnosis Differential diagnosis includes congestive heart failure, pulmonary edema, pulmonary embolism, cardiomyopathy, pneumonia, reactive airway disease, pulmonary embolism. Narrative Course IV was established, labs are drawn and sent, the patient was placed on cardiac telemetry monitoring and continuous pulse oximetry monitoring. EKG was ordered and interpreted. Chest x-ray was obtained. Nursing staff contacted family regards of possible DNR and to update on the patient's current respiratory status. The patient was suctioned by respiratory bedside producing a large amount of sputum. A trial of BiPAP was performed. I had a discussion with the patient's son, Dickson Gale, who states they have had recent discussions with his other brother regarding the patient's CODE STATUS and possible palliative care and/or hospice treatment. They state that they wanted mother to be treated , they do not want her to "suffer", however, they do not currently want intubation or CPR. After discussion it was agreed the patient would be a DNR, the nurse, Mimi, also discussed the CODE STATUS with the son. Therefore, the patient was made a DNR. The patient's chest x-ray was clear, she is tachycardic and hypoxic, therefore, CT pulmonary angiogram was ordered to evaluate for pulmonary embolism. The patient went to CT, when she came back from CT she was noted to have no respiratory effort. The patient had no palpable pulse. The patient had been made a DNR earlier in the day after discussion with the family. Bedside ultrasound was performed, there is no cardiac activity. The patient was pronounced at 1:50 PM. The patient's physician of record at the [place] [facility] is Dr. Adryan Ritchie. Therefore, call will be placed to Dr. Adryan Ritchie to sign the certificate. Procedures Procedure Narrative Bedside ultrasound was performed with a curvilinear probe which revealed no cardiac activity. The patient tolerated the procedure without difficulty and there was no obvious complications. Diagnosis Primary Impression: Dyspnea Qualified Codes: R06.00 - Dyspnea, unspecified Disposition: 20 Condition: Casper Boone MD Nov 23, 2017 11:10
[2017-11-23 11:22] VITALS: BP 148/71; PULSE 130; RESP 22; O2SAT 95
[2017-11-23 11:23] VITALS: PULSE 132; RESP 22
[2017-11-23] MEDS ORDERED: ARIP1TAB11 PO (11:48)
[2017-11-23] MEDS ORDERED: VITA10002 PO (11:48)
[2017-11-23] MEDS ORDERED: TYLE325T PO (11:50)
--- NOTE | 2017-11-23 11:54 | RADRPT ---
EXAM DATE/TIME: 11/23/2017 11:10 [facility] COMPARISON: BARIUM SWALLOW, October 03, 2017, 9:41. INDICATIONS : Short of breath. MEDICAL HISTORY : None. Dementia. Seizures. SURGICAL HISTORY : None. ENCOUNTER: Initial ACUITY: 1 day PAIN SCORE: Non-responsive. LOCATION: Bilateral chest FINDINGS: A single view of the chest demonstrates the lungs to be symmetrically aerated without evidence of mas s, infiltrate or effusion. The cardiomediastinal contours are unremarkable. Osseous structures are intact. CONCLUSION: 1. No acute cardiopulmonary findings are identified. Mateo Velarde MD on November 23, 2017 at 11:39 Board Certified Radiologist. This report was verified electronically.
[2017-11-23 12:01] LABS: HEMATOCRIT 41.1 % (35.0-46.0); HEMOGLOBIN 14.5 GM/DL (11.6-15.3); MEAN CELL VOLUME 98.2 FL (80.0-100.0); MEAN CORPUSCULAR HEMOGLOBIN 34.6 PG (27.0-34.0); MEAN CORPUSCULAR HGB CONC 35.2 % (32.0-36.0); MEAN PLATELET VOLUME 7.8 FL (7.0-11.0); NEUT % 68.1 % (16.0-70.0); PLATELET COUNT 152 TH/MM3 (150-450); RED BLOOD COUNT 4.19 MIL/MM3 (4.00-5.30); RED CELL DISTRIBUTION WIDTH 12.7 % (11.6-17.2)
[2017-11-23 12:02] LABS: AUTOMATED NEUTROPHIL # 10.2 TH/MM3 (1.8-7.7); BASOPHIL % 0.2 % (0.0-2.0); EOSINOPHIL % 0.2 % (0.0-4.0); LYMPH % 22.5 % (9.0-44.0); LYMPHOCYTE # 3.4 TH/MM3 (1.0-4.8); MONOCYTE # 1.4 TH/MM3 (0-0.9)
[2017-11-23 12:10] LABS: INTERNATIONAL NORMALIZED RATIO 1.1 RATIO
[2017-11-23 12:24] LABS: ALBUMIN 3.6 GM/DL (3.4-5.0); AST (GOT) 48 U/L (15-37); BICARBONATE 32.4 MEQ/L (21.0-32.0); BLOOD UREA NITROGEN 5 MG/DL (7-18); CALCIUM 8.9 MG/DL (8.5-10.1); CHLORIDE 91 MEQ/L (98-107); CREATININE 0.56 MG/DL (0.50-1.00); GLOMERULAR FILTRATION RATE 104 ML/MIN (>89); GLUCOSE,RANDOM 154 MG/DL (74-106); SODIUM (NA) 131 MEQ/L (136-145)
[2017-11-23 12:29] LABS: ALKALINE PHOSPHATASE 110 U/L (45-117); ALT (GPT) 28 U/L (10-53); TOTAL BILIRUBIN ADULT 0.5 MG/DL (0.2-1.0); TOTAL PROTEIN 8.1 GM/DL (6.4-8.2); TROPONIN I 0.02 NG/ML (0.02-0.05)
[2017-11-23 13:15] VITALS: BP 206/91; PULSE 106; RESP 22; O2SAT 93
[2017-11-23] MEDS ORDERED: IOHEXOL 350 MG/ML 10 ML VIAL (for RAD DIAG) IVCONTRAST ONE (13:30)
--- NOTE | 2017-11-23 14:00 | RADRPT ---
EXAM DATE/TIME: 11/23/2017 13:28 [facility] COMPARISON: CTA CAROTID ARTERIES W 3D RECON, October 01, 2017, 9:13. CHEST SINGLE AP, November 23, 2017, 11:10. INDICATIONS : Shortness of breath. IV CONTRAST: 72 cc Omnipaque 350 (iohexol) IV RADIATION DOSE: 10.87 CTDIvol (mGy) MEDICAL HISTORY : Non-responsive. SURGICAL HISTORY : Non-responsive. ENCOUNTER: Initial ACUITY: 1 day PAIN SCALE: Non-responsive LOCATION: Bilateral chest TECHNIQUE: Volumetric scanning of the chest was performed using a pulmonary embolism protocol MIP images were re constructed. Using automated exposure control and adjustment of the mA and/or kV according to patien t size, radiation dose was kept as low as reasonably achievable to obtain optimal diagnostic quality images. DICOM format image data is available electronically for review and comparison. Follow-up recommendations for detected pulmonary nodules are based at a minimum on nodule size and pa tient risk factors according to Fleischner Society Guidelines. FINDINGS: There is mild reticulonodular infiltrate, mucous plugging and peribronchial thickening in the left lo wer lobe. There is patchy tree in bud more confluent infiltrate identified in the right lower lobe wi th mucus plugging and peribronchial thickening. There are secretions seen within the bilateral mainst em bronchi and entire right lower lobe airway. There is mild reticulonodular infiltrate right middle lobe. There are no effusions. There is a right paratracheal lymph node measuring 1 cm short axis dime nsion, subcentimeter subcarinal lymph node is noted. There is no evidence for pulmonary embolism. 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 CONCLUSION: No evidence for pulmonary embolism. Bilateral pulmonary infiltrates are noted as above. Winston Antony MD on November 23, 2017 at 13:55 Board Certified Radiologist. This report was verified electronically.
--- NOTE | 2017-11-24 20:37 | EKG ---
Date Performed: 11/23/2017 Time Performed: 11:05:20 PTAGE: 77 years EKG: SINUS TACHYCARDIA WITH VENTRICULAR AND SUPRAVENTRICULAR PREMATURE COMPLEXES ABNORMAL ECG Si nce the PREVIOUS TRACING , no significant change noted DOCTOR: Pete Juárez Interpretating Date/Time 11/24/2017 20:36:38
== END 2017-11-23 17:46 | disposition expired ==
LOC: NEPC 10:47 → NEPI 17:46
DX: R06.00 Dyspnea, unspecified (principal); F03.90 Unspecified dementia, unspecified severity, without behavioral disturbance, psychotic disturbance, mood disturbance, and anxiety; R07.89 Other chest pain; R00.0 Tachycardia, unspecified; I49.3 Ventricular premature depolarization; R94.31 Abnormal electrocardiogram [ECG] [EKG]; E78.00 Pure hypercholesterolemia, unspecified; F41.9 Anxiety disorder, unspecified; Z66 Do not resuscitate; Z79.899 Other long term (current) drug therapy
CPT/HCPCS: 71045; 71275; 80053; 82550; 82552; 83605; 83735; 83880; 84484; 85025; 85610; 85730; 87040; 93005; 99285; Q9967